=== PATIENT | male | born 1955 | race Caucasian/White ===

== ENCOUNTER 2020-03-14 23:04 | Inpatient (IN) | payer MEDICARE, OTHER ==
[2020-03-15] MEDS ORDERED: Albuterol/Ipratropium 4 GM Inhalation Spray INH PRN (00:16)
--- NOTE | 2020-03-15 00:17 | EDM.PDOC ---
ED HPI GENERAL MEDICAL PROBLEM - General Chief Complaint: General Stated Complaint: COVID SYMPTOMS Time Seen by Provider: 03/15/20 00:05 Source of Information: Reports: Patient, RN Notes Reviewed History Limitations: Reports: No Limitations - History of Present Illness INITIAL COMMENTS - FREE TEXT/NARRATIVE: 64-year-old gentleman presents emergency department a complaint of shortness of breath, he states been ill for about 5 days has had fevers body aches at home did have a Covid test about 3 days ago but the results are not available Right Shoulder Pain Score (Numeric/FACES): 4 - Related Data Allergies Allergy/AdvReac Type Severity Reaction Status Date / Time codeine Allergy Swelling Verified 01/07/14 20:28 Home Meds: Home Meds Insulin Glarg,Human.Rec.Analog [Lantus] 30 unit SQ QAM 01/07/14 [History] Insulin Lispro [Humalog] 5 units SQ QPM 01/07/14 [History] Omeprazole 20 mg PO DAILY 01/07/14 [History] SitaGLIPtin [Januvia] 100 mg PO DAILY 01/07/14 [History] Warfarin Sliding Scale [Coumadin Sliding Scale] 5 mg PO ASDIRECTED 01/07/14 [History] atorvaSTATin [Lipitor] 20 mg PO DAILY 01/07/14 [History] Past Medical History Respiratory History: Reports: COPD - Infectious Disease History Infectious Disease History: Reports: Chicken Pox, Measles, Mumps - Past Surgical History Musculoskeletal Surgical History: Reports: Other (See Below) Other Musculoskeletal Surgeries/Procedures:: back surgeries Social & Family History - Tobacco Use Tobacco Use Status *Q: Never Tobacco User - Caffeine Use Caffeine Use: Reports: Coffee - Recreational Drug Use Recreational Drug Use: No ED ROS GENERAL - Review of Systems Review Of Systems: See Below Constitutional: Reports: Fever, Chills, Weakness HEENT: Reports: No Symptoms Respiratory: Reports: Shortness of Breath, Cough Cardiovascular: Reports: Dyspnea on Exertion GI/Abdominal: Reports: No Symptoms ED EXAM, GENERAL - Physical Exam Exam: See Below Exam Limited By: No Limitations General Appearance: Alert, WD/WN, No Apparent Distress Respiratory/Chest: No Respiratory Distress, Lungs Clear, No Accessory Muscle Use, Chest Non-Tender, Decreased Breath Sounds Cardiovascular: Regular Rate, Rhythm, No Murmur Course - Vital Signs Last Recorded V/S: Last Vital Signs Temp 97 F 03/14/20 23:14 Pulse 90 03/15/20 00:54 Resp 22 H 03/15/20 00:54 BP 150/85 H 03/15/20 00:54 Pulse Ox 96 03/15/20 00:54 - Orders/Labs/Meds Orders: Active Orders 24 hr Category Date Time Status RT Post Treatment Assessment [RC] Click to Edit Care 03/15/20 00:16 Active Chest 1V Frontal [CR] Stat Exams 03/15/20 00:14 Taken Acetaminophen [TylenoL] Med 03/15/20 00:12 Active 650 mg PO Q4H PRN Albuterol/Ipratropium [Combivent Respimat] Med 03/15/20 00:16 Active 1 gm INH Q4H PRN dexAMETHasone [Decadron] Med 03/15/20 02:30 Ordered 6 mg IVPUSH DAILY Isolation [COMM] Routine Oth 03/15/20 00:14 Ordered Isolation [COMM] Stat Oth 03/15/20 00:12 Ordered Medication Orders Acetaminophen (Tylenol) 650 mg PO Q4H PRN PRN Reason: Fever Greater Than 101 Albuterol/Ipratropium (Combivent Respimat) 1 gm INH Q4H PRN PRN Reason: Dyspnea Last Admin: 03/15/20 00:39 Dose: 2 puff Documented by: ADELSO Dexamethasone (Decadron) 6 mg IVPUSH DAILY LIZABETH Stop: 03/23/20 09:01 Labs: Laboratory Tests 03/15/20 03/15/20 03/15/20 Range/Units 00:12 00:12 00:43 WBC 4.9 (4.5-11.0) K/uL RBC 5.41 (4.30-5.90) M/uL Hgb 15.8 H (12.0-15.0) g/dL Hct 47.9 (40.0-54.0) % MCV 89 (80-98) fL MCH 29 (27-31) pg MCHC 33 (32-36) % Plt Count 203 (150-400) K/uL Neut % (Auto) 52 (36-66) % Lymph % (Auto) 37 (24-44) % [place] % (Auto) 10 H (2-6) % Eos % (Auto) 1 L (2-4) % Baso % (Auto) 1 (0-1) % PT (9.5-12.0) sec INR (0.80-1.20) D-Dimer, Quantitative (0.0-500.0) ng/mL Puncture Site Rt radial ABG pH 7.461 H (7.350-7.450) ABG pCO2 27.8 L (35.0-42.0) mmHg ABG pO2 93.4 (75.0-100.0) mmHg ABG HCO3 19.6 L (22.0-26.0) mmol/L ABG Total CO2 16.5 L (23.0-27.0) mmol/L ABG O2 Saturation 97.4 (95.0-98.0) % ABG O2 Content 21.4 (15.0-23.0) %vol ABG Base Excess -2.3 mm/L ABG Hemoglobin 15.9 (13.5-18.0) g/dL ABG Oxyhemoglobin 95.5 % ABG Carboxyhemoglobin 1.1 (0.0-1.6) % ABG Methemoglobin 0.9 % Jarad Test Passed O2 Delivery Device Nasal cannula Oxygen Flow Rate 2.0 L Sodium (140-148) mmol/L Potassium (3.6-5.2) mmol/L Chloride (100-108) mmol/L Carbon Dioxide (21-32) mmol/L Anion Gap (5.0-14.0) mmol/L BUN (7-18) mg/dL Creatinine (0.8-1.3) mg/dL Est Cr Clr Drug Dosing mL/min Estimated GFR (MDRD) (>60) Glucose (74-106) mg/dL Lactic Acid (0.4-2.0) mmol/L Calcium (8.5-10.1) mg/dL Ferritin (8-388) ng/ml Total Bilirubin (0.2-1.0) mg/dL Direct Bilirubin (0.0-0.2) mg/dL Indirect Bilirubin AST (15-37) U/L ALT (12-78) U/L Alkaline Phosphatase (46-116) U/L Lactate Dehydrogenase (85-227) U/L C-Reactive Protein (0.0-0.3) mg/dL Total Protein (6.4-8.2) g/dL Albumin (3.4-5.0) g/dL Globulin (2.3-3.5) g/dL Albumin/Globulin Ratio (1.2-2.2) Procalcitonin ng/mL SARS-CoV-2 RNA (RUSSELL) Positive H (NEGATIVE) 03/15/20 03/15/20 03/15/20 Range/Units 00:47 00:47 00:47 WBC (4.5-11.0) K/uL RBC (4.30-5.90) M/uL Hgb (12.0-15.0) g/dL Hct (40.0-54.0) % MCV (80-98) fL MCH (27-31) pg MCHC (32-36) % Plt Count (150-400) K/uL Neut % (Auto) (36-66) % Lymph % (Auto) (24-44) % [place] % (Auto) (2-6) % Eos % (Auto) (2-4) % Baso % (Auto) (0-1) % PT (9.5-12.0) sec INR (0.80-1.20) D-Dimer, Quantitative 289.69 (0.0-500.0) ng/mL Puncture Site ABG pH (7.350-7.450) ABG pCO2 (35.0-42.0) mmHg ABG pO2 (75.0-100.0) mmHg ABG HCO3 (22.0-26.0) mmol/L ABG Total CO2 (23.0-27.0) mmol/L ABG O2 Saturation (95.0-98.0) % ABG O2 Content (15.0-23.0) %vol ABG Base Excess mm/L ABG Hemoglobin (13.5-18.0) g/dL ABG Oxyhemoglobin % ABG Carboxyhemoglobin (0.0-1.6) % ABG Methemoglobin % Jarad Test O2 Delivery Device Oxygen Flow Rate L Sodium 133 L (140-148) mmol/L Potassium 3.9 (3.6-5.2) mmol/L Chloride 97 L (100-108) mmol/L Carbon Dioxide 24 (21-32) mmol/L Anion Gap 15.9 H (5.0-14.0) mmol/L BUN 18 (7-18) mg/dL Creatinine 1.4 H (0.8-1.3) mg/dL Est Cr Clr Drug Dosing 61.16 mL/min Estimated GFR (MDRD) 51 L (>60) Glucose 193 H (74-106) mg/dL Lactic Acid (0.4-2.0) mmol/L Calcium 8.6 (8.5-10.1) mg/dL Ferritin 192 (8-388) ng/ml Total Bilirubin 0.5 (0.2-1.0) mg/dL Direct Bilirubin 0.19 (0.0-0.2) mg/dL Indirect Bilirubin 0.31 AST 64 H D (15-37) U/L ALT 48 (12-78) U/L Alkaline Phosphatase 59 (46-116) U/L Lactate Dehydrogenase 240 H (85-227) U/L C-Reactive Protein 1.66 H (0.0-0.3) mg/dL Total Protein 8.7 H (6.4-8.2) g/dL Albumin 3.3 L (3.4-5.0) g/dL Globulin 5.4 H (2.3-3.5) g/dL Albumin/Globulin Ratio 0.6 L (1.2-2.2) Procalcitonin ng/mL SARS-CoV-2 RNA (RUSSELL) (NEGATIVE) 03/15/20 03/15/20 03/15/20 Range/Units 00:47 00:47 00:47 WBC (4.5-11.0) K/uL RBC (4.30-5.90) M/uL Hgb (12.0-15.0) g/dL Hct (40.0-54.0) % MCV (80-98) fL MCH (27-31) pg MCHC (32-36) % Plt Count (150-400) K/uL Neut % (Auto) (36-66) % Lymph % (Auto) (24-44) % [place] % (Auto) (2-6) % Eos % (Auto) (2-4) % Baso % (Auto) (0-1) % PT 30.4 H (9.5-12.0) sec INR 2.85 H (0.80-1.20) D-Dimer, Quantitative (0.0-500.0) ng/mL Puncture Site ABG pH (7.350-7.450) ABG pCO2 (35.0-42.0) mmHg ABG pO2 (75.0-100.0) mmHg ABG HCO3 (22.0-26.0) mmol/L ABG Total CO2 (23.0-27.0) mmol/L ABG O2 Saturation (95.0-98.0) % ABG O2 Content (15.0-23.0) %vol ABG Base Excess mm/L ABG Hemoglobin (13.5-18.0) g/dL ABG Oxyhemoglobin % ABG Carboxyhemoglobin (0.0-1.6) % ABG Methemoglobin % Jarad Test O2 Delivery Device Oxygen Flow Rate L Sodium (140-148) mmol/L Potassium (3.6-5.2) mmol/L Chloride (100-108) mmol/L Carbon Dioxide (21-32) mmol/L Anion Gap (5.0-14.0) mmol/L BUN (7-18) mg/dL Creatinine (0.8-1.3) mg/dL Est Cr Clr Drug Dosing mL/min Estimated GFR (MDRD) (>60) Glucose (74-106) mg/dL Lactic Acid 2.3 H (0.4-2.0) mmol/L Calcium (8.5-10.1) mg/dL Ferritin (8-388) ng/ml Total Bilirubin (0.2-1.0) mg/dL Direct Bilirubin (0.0-0.2) mg/dL Indirect Bilirubin AST (15-37) U/L ALT (12-78) U/L Alkaline Phosphatase (46-116) U/L Lactate Dehydrogenase (85-227) U/L C-Reactive Protein (0.0-0.3) mg/dL Total Protein (6.4-8.2) g/dL Albumin (3.4-5.0) g/dL Globulin (2.3-3.5) g/dL Albumin/Globulin Ratio (1.2-2.2) Procalcitonin < 0.05 ng/mL SARS-CoV-2 RNA (RUSSELL) (NEGATIVE) Meds: Medications Generic Name Dose Route Start Last Admin Trade Name Freq PRN Reason Stop Dose Admin Acetaminophen 650 mg 03/15/20 00:12 Tylenol PO Q4H PRN Fever Greater Than 101 Albuterol/Ipratropium 1 gm 03/15/20 00:16 03/15/20 00:39 Combivent Respimat INH 2 puff Q4H PRN Administration Dyspnea Dexamethasone 6 mg 03/15/20 02:30 Decadron IVPUSH 03/23/20 09:01 DAILY LIZABETH Discontinued Medications Generic Name Dose Route Start Last Admin Trade Name Freq PRN Reason Stop Dose Admin Remdesivir 200 mg/ Sodium 250 mls @ 250 mls/hr 03/15/20 02:22 Chloride IV 03/15/20 02:23 ONETIME ONE Departure - Departure Time of Disposition: 02:33 Disposition: Admitted As Inpatient 65 Condition: Fair Clinical Impression: COVID-19 - Discharge Information Referrals: Handy Parisi MD [Primary Care Provider] - Forms: ED Department Discharge Sepsis Event Note (ED) - Evaluation Sepsis Screening Result: Possible Sepsis Risk - Focused Exam Vital Signs: Vital Signs Temp Pulse Resp BP Pulse Ox 03/15/20 00:54 90 22 H 150/85 H 96 03/14/20 23:14 97 F 103 H 20 114/78 89 L - My Orders Last 24 Hours: My Active Orders 03/15/20 00:12 Acetaminophen [TylenoL] 650 mg PO Q4H PRN Isolation [COMM] Stat 03/15/20 00:14 Chest 1V Frontal [CR] Stat Isolation [COMM] Routine 03/15/20 00:16 RT Post Treatment Assessment [RC] Click to Edit Albuterol/Ipratropium [Combivent Respimat] 1 gm INH Q4H PRN 03/15/20 02:30 dexAMETHasone [Decadron] 6 mg IVPUSH DAILY - Assessment/Plan Last 24 Hours: My Active Orders 03/15/20 00:12 Acetaminophen [TylenoL] 650 mg PO Q4H PRN Isolation [COMM] Stat 03/15/20 00:14 Chest 1V Frontal [CR] Stat Isolation [COMM] Routine 03/15/20 00:16 RT Post Treatment Assessment [RC] Click to Edit Albuterol/Ipratropium [Combivent Respimat] 1 gm INH Q4H PRN 03/15/20 02:30 dexAMETHasone [Decadron] 6 mg IVPUSH DAILY Plan: Assessment Acuity = acute Site and laterality = Covid syndrome Etiology = COVID-19 Manifestations = hypoxia Location of injury = Home Lab values = CBC unremarkable D-dimer normal to 89 ABG pH 7.46 PCO2 27.8 bicarb 19.6 sodium low at 133 consistent hyponatremia creatinine elevated 1.4 consistent with chronic renal failure stage G3 B lactic acid normal 2.3 LDH slightly elevated to 40 CRP slightly elevated 166 procalcitonin is less than 0.05 Covid is positive influenza a and B- Plan Call discussed case Dr. Swift at 230 he kindly agreed to come and evaluate patient in the hospital for admission remdesivir and dexamethasone have been initiated in the emergency department This note was dictated using [employer] voice recognition software please call with any questions on syntax or grammar.
[2020-03-15] MEDS ORDERED: REMDESIVIR 200 MG in Sodium Chloride 0.9% 250 ML IV ONE (02:22)
[2020-03-15] MEDS ORDERED: Dexamethasone 4 MG/ML SDV IVPUSH SCH ×2 (02:30→22:00)
[2020-03-15] MEDS: Acetaminophen 325 MG Tab PO PRN ×2 (03:57→12:32)
[2020-03-15] MEDS: Pantoprazole 40 MG Tab.CR PO SCH (07:59)
[2020-03-15] MEDS: atorvaSTATin 20 MG Tab PO SCH (08:00)
[2020-03-15] MEDS: Insulin Glargine,Human Rec. Analog 100 Units/ML 3 ML Pen SUBCUT SCH (08:04)
[2020-03-15] MEDS ORDERED: Insulin Glargine,Human Rec. Analog 100 Units/ML 3 ML Pen SUBCUT SCH (09:00)
--- NOTE | 2020-03-15 09:41 | HP ---
IDENTIFYING DATA: Niko Mason is a 64-year-old male from [facility]. CHIEF COMPLAINT: Short of breath. HISTORY OF PRESENT ILLNESS: Adult disabled male, has a noted history of idiopathic pulmonary fibrosis with chronic [id number] limiting respiratory symptoms. He is not currently on routine maintenance therapy. Unsure whether he has received his annual flu vaccine. He is a former smoker having discontinued 20 years ago. Denies a history of emphysema or asthmatic lung disease. He notes 5 days ago he ran errands in town. Later that day, he reports developing cough, congestion, and shortness of breath, as well as abdominal discomfort, anorexia, and diarrhea. He has had no loss of taste or smell. No purulent sputum production. Does have development of right-sided chest pain of a pleuritic component. No nasal congestion or coryza is reported. PAST MEDICAL HISTORY: Noted history of type 2 diabetes with insulin therapies. Additionally, he has a reported history of DVT with pulmonary emboli with long-standing Coumadin anticoagulant therapy. He denies a history of hypertension, hyperlipidemia, or ischemic heart disease. No history of HI or congestive heart failure. Does have a history of chronic lumbar back disease with 7 surgical procedures for back pain. Chronic back pain and stiffness remains limiting. He is on no regular prescription therapies for analgesia. Estimates his ambulatory distance at 150 feet limited by back pain and stiffness as well as chronic limiting respiratory symptoms. ALLERGIES: REPORTED TO CODEINE. CURRENT MEDICATIONS: Lantus 30 units subcu q.a.m., Humalog 5 units subcu q.p.m., omeprazole 20 mg daily, warfarin on sliding scale for DVT prophylaxis, atorvastatin 20 mg daily, and omeprazole 20 mg daily. HABITS: Nonsmoker of 20 years duration. Caffeine intake averages 5 drinks daily with a combination of coffee and carbonated beverages. No regular use of alcohol. SOCIAL HISTORY: Currently residing with his and elderly [id number] in their [facility] home. He is disabled by chronic respiratory and back disease, does engage in daily activities, performs ADLs independently. He typically drives. FAMILY HISTORY: Notes his elderly [id number] had a recent "flu" with cough, congestion, and subsequent resolution of symptoms. has been well. REVIEW OF SYSTEMS: NEUROLOGIC: No history of strokes, seizures, glaucoma, retinopathy, or hearing loss. Denies paresthesias in the feet. CARDIAC: Hyperlipidemia with atorvastatin therapy. No history of HI, chest pain, palpitations, syncope, congestive heart failure or rheumatic fever, chronic diabetic disease is noted. RESPIRATORY: Idiopathic pulmonary fibrosis without current active treatment, has not required home oxygen therapies. GI: Denies hepatitis, jaundice, chronic constipation, recently has had diarrhea as well as anorexia. : Nocturia 1 to 2 times nightly. No history of known chronic renal disease. MUSCULOSKELETAL: Chronic back pain with multiple surgeries. PHYSICAL EXAMINATION: GENERAL: Appearance is that of an adult male, currently in no acute distress. Does note recurrent right-sided chest wall pain, relieved with repositioning in bed. VITAL SIGNS: On admission, temperature 97 degrees Fahrenheit, pulse 90, respiratory rate 22, blood pressure 150/85, O2 sats 96% with supplemental oxygen at 2 L/minute. HEENT: Hearing is grossly intact. Pupils reactive. Sclerae are anicteric. Oral mucosa is moist. NECK: Brisk carotid pulses. No bruits or JVD. LUNGS: Slight decreased breath sounds in the right hemithorax. No pleuritic rubs. No wheezes or rhonchi noted. Few scattered rales in the [id number] lungs bilaterally. No retractions. HEART: Heart sounds are regular. Distant. No murmurs or gallops noted. ABDOMEN: Nondistended, nontender. No organomegaly. Active sounds. No CVA pain. Good femoral pulses. and RECTAL: Omitted. EXTREMITIES: Warm and pink. Skin is intact. No pitting edema. Good dorsal, pedal, and posterior tibial pulses. IMAGING: Chest x-ray, interstitial changes bilaterally. No acute infiltrates. Suggestion of effusion at the right costophrenic margin. LABORATORY DATA: WBC 4.9, hemoglobin 15.8, platelet count 203,000. INR 2.85 on Coumadin anticoagulant therapy. ABGs on admission; pH 7.46, pCO2 of 27.8, pO2 of 93, with supplemental oxygen at 2 L/minute. Bicarb 27.8, sodium 133, potassium 3.9, BUN 18, creatinine 1.4 with a GFR of 51, glucose 193 on admission. Lactic acid 2.3, ferritin 192, alkaline phosphatase 59, ALT 48, AST 64. C-reactive protein mildly elevated at 1.66. Procalcitonin less than 0.05. COVID-19 by RNA PCR positive. IMPRESSION: 1. COVID-19 infection. 2. Reported history of idiopathic pulmonary fibrosis. 3. Type 2 diabetes. 4. Hyperlipidemia. 5. Chronic lumbar spine disease with multiple previous surgeries. 6. Remote history of tobacco use, now abstaining. PLAN: With respiratory impairment noted and risk factors for complications including chronic respiratory disease, and diabetes, patient will be admitted to the COVID unit for ongoing supportive care. First dose of remdesivir and dexamethasone have been provided in the ER setting. We will continue to provide oxygen by supplemental therapy with nasal cannula administration, monitor vital signs, allow diabetic diet, insulin therapies, and glucose monitoring. Followup labs including BMP, C-reactive protein, b.i.d. glucose checks and daily protime INR have been requested. We will continue with warfarin anticoagulant therapy as well. Full code status will be maintained per patient's request. He remains in isolation in the COVID unit. Sundar Swift MD /[id number]
[2020-03-15] MEDS: Insulin Lispro 100 Unit/ML 3 ML KwikPen SUBCUT SCH ×3 (12:21→21:43)
[2020-03-15] MEDS ORDERED: Warfarin 5 MG Tab PO SCH (13:00)
--- NOTE | 2020-03-15 16:19 | PCM.PN ---
- General Info Date of Service: 03/15/20 Subjective Update: Mr. Odom is a 64-year-old gentleman who was admitted through the emergency department earlier today with shortness of breath, weakness, cough, and hypoxia, secondary to COVID-19 and bilateral pneumonia. He was diagnosed with COVID-19 a few days ago and has developed progressive symptoms since then. Presented to the emergency department last night because of his increased shortness of breath. Chest x-ray shows bilateral pulmonary infiltrates consistent with Covid infection and testing for COVID-19 was found to be positive. White blood cell count is within normal range. Oxygen saturation is corrected with a few liters of oxygen via nasal cannula. He does have a history of underlying idiopathic pulmonary fibrosis but does not currently require oxygen at baseline. Functional Status: Reports: Tolerating Diet, Urinating - Review of Systems General: Reports: Weakness, Fatigue. Denies: Fever, Chills Pulmonary: Reports: Shortness of Breath, Cough. Denies: Pleuritic Chest Pain, Sputum, Hemoptysis, Wheezing Cardiovascular: Reports: Dyspnea on Exertion. Denies: Chest Pain, Palpitations, Orthopnea, PND, Edema, Lightheadedness Gastrointestinal: Reports: No Symptoms Genitourinary: Reports: No Symptoms - Patient Data Vitals - Most Recent: Last Vital Signs Temp 206.2 F H 03/15/20 14:57 Pulse 93 03/15/20 14:57 Resp 16 03/15/20 14:57 BP 123/88 03/15/20 14:57 Pulse Ox 93 L 03/15/20 14:57 Weight - Most Recent: 230 lb 8 oz I&O - Last 24 Hours: Intake & Output 03/15/20 03/15/20 03/15/20 06:59 14:59 22:59 Intake Total 120 Balance 120 Lab Results Last 24 Hours: Laboratory Results - last 24 hr 03/15/20 03/15/20 03/15/20 Range/Units 00:12 00:12 00:20 WBC 4.9 (4.5-11.0) K/uL RBC 5.41 (4.30-5.90) M/uL Hgb 15.8 H (12.0-15.0) g/dL Hct 47.9 (40.0-54.0) % MCV 89 (80-98) fL MCH 29 (27-31) pg MCHC 33 (32-36) % Plt Count 203 (150-400) K/uL Neut % (Auto) 52 (36-66) % Lymph % (Auto) 37 (24-44) % [place] % (Auto) 10 H (2-6) % Eos % (Auto) 1 L (2-4) % Baso % (Auto) 1 (0-1) % PT (9.5-12.0) sec INR (0.80-1.20) D-Dimer, Quantitative (0.0-500.0) ng/mL Puncture Site Rt radial ABG pH 7.461 H (7.350-7.450) ABG pCO2 27.8 L (35.0-42.0) mmHg ABG pO2 93.4 (75.0-100.0) mmHg ABG HCO3 19.6 L (22.0-26.0) mmol/L ABG Total CO2 16.5 L (23.0-27.0) mmol/L ABG O2 Saturation 97.4 (95.0-98.0) % ABG O2 Content 21.4 (15.0-23.0) %vol ABG Base Excess -2.3 mm/L ABG Hemoglobin 15.9 (13.5-18.0) g/dL ABG Oxyhemoglobin 95.5 % ABG Carboxyhemoglobin 1.1 (0.0-1.6) % ABG Methemoglobin 0.9 % Jarad Test Passed O2 Delivery Device Nasal cannula Oxygen Flow Rate 2.0 L Sodium (140-148) mmol/L Potassium (3.6-5.2) mmol/L Chloride (100-108) mmol/L Carbon Dioxide (21-32) mmol/L Anion Gap (5.0-14.0) mmol/L BUN (7-18) mg/dL Creatinine (0.8-1.3) mg/dL Est Cr Clr Drug Dosing mL/min Estimated GFR (MDRD) (>60) Glucose (74-106) mg/dL POC Glucose (74-106) MG/DL Lactic Acid (0.4-2.0) mmol/L Calcium (8.5-10.1) mg/dL Ferritin (8-388) ng/ml Total Bilirubin (0.2-1.0) mg/dL Direct Bilirubin (0.0-0.2) mg/dL Indirect Bilirubin AST (15-37) U/L ALT (12-78) U/L Alkaline Phosphatase (46-116) U/L Lactate Dehydrogenase (85-227) U/L C-Reactive Protein (0.0-0.3) mg/dL Total Protein (6.4-8.2) g/dL Albumin (3.4-5.0) g/dL Globulin (2.3-3.5) g/dL Albumin/Globulin Ratio (1.2-2.2) Procalcitonin ng/mL SARS-CoV-2 RNA (RUSSELL) (NEGATIVE) Blood Type AB POSITIVE 03/15/20 03/15/20 03/15/20 Range/Units 00:43 00:47 00:47 WBC (4.5-11.0) K/uL RBC (4.30-5.90) M/uL Hgb (12.0-15.0) g/dL Hct (40.0-54.0) % MCV (80-98) fL MCH (27-31) pg MCHC (32-36) % Plt Count (150-400) K/uL Neut % (Auto) (36-66) % Lymph % (Auto) (24-44) % [place] % (Auto) (2-6) % Eos % (Auto) (2-4) % Baso % (Auto) (0-1) % PT (9.5-12.0) sec INR (0.80-1.20) D-Dimer, Quantitative 289.69 (0.0-500.0) ng/mL Puncture Site ABG pH (7.350-7.450) ABG pCO2 (35.0-42.0) mmHg ABG pO2 (75.0-100.0) mmHg ABG HCO3 (22.0-26.0) mmol/L ABG Total CO2 (23.0-27.0) mmol/L ABG O2 Saturation (95.0-98.0) % ABG O2 Content (15.0-23.0) %vol ABG Base Excess mm/L ABG Hemoglobin (13.5-18.0) g/dL ABG Oxyhemoglobin % ABG Carboxyhemoglobin (0.0-1.6) % ABG Methemoglobin % Jarad Test O2 Delivery Device Oxygen Flow Rate L Sodium (140-148) mmol/L Potassium (3.6-5.2) mmol/L Chloride (100-108) mmol/L Carbon Dioxide (21-32) mmol/L Anion Gap (5.0-14.0) mmol/L BUN (7-18) mg/dL Creatinine (0.8-1.3) mg/dL Est Cr Clr Drug Dosing mL/min Estimated GFR (MDRD) (>60) Glucose (74-106) mg/dL POC Glucose (74-106) MG/DL Lactic Acid (0.4-2.0) mmol/L Calcium (8.5-10.1) mg/dL Ferritin 192 (8-388) ng/ml Total Bilirubin (0.2-1.0) mg/dL Direct Bilirubin (0.0-0.2) mg/dL Indirect Bilirubin AST (15-37) U/L ALT (12-78) U/L Alkaline Phosphatase (46-116) U/L Lactate Dehydrogenase (85-227) U/L C-Reactive Protein (0.0-0.3) mg/dL Total Protein (6.4-8.2) g/dL Albumin (3.4-5.0) g/dL Globulin (2.3-3.5) g/dL Albumin/Globulin Ratio (1.2-2.2) Procalcitonin ng/mL SARS-CoV-2 RNA (RUSSELL) Positive H (NEGATIVE) Blood Type 03/15/20 03/15/20 03/15/20 Range/Units 00:47 00:47 00:47 WBC (4.5-11.0) K/uL RBC (4.30-5.90) M/uL Hgb (12.0-15.0) g/dL Hct (40.0-54.0) % MCV (80-98) fL MCH (27-31) pg MCHC (32-36) % Plt Count (150-400) K/uL Neut % (Auto) (36-66) % Lymph % (Auto) (24-44) % [place] % (Auto) (2-6) % Eos % (Auto) (2-4) % Baso % (Auto) (0-1) % PT (9.5-12.0) sec INR (0.80-1.20) D-Dimer, Quantitative (0.0-500.0) ng/mL Puncture Site ABG pH (7.350-7.450) ABG pCO2 (35.0-42.0) mmHg ABG pO2 (75.0-100.0) mmHg ABG HCO3 (22.0-26.0) mmol/L ABG Total CO2 (23.0-27.0) mmol/L ABG O2 Saturation (95.0-98.0) % ABG O2 Content (15.0-23.0) %vol ABG Base Excess mm/L ABG Hemoglobin (13.5-18.0) g/dL ABG Oxyhemoglobin % ABG Carboxyhemoglobin (0.0-1.6) % ABG Methemoglobin % Jarad Test O2 Delivery Device Oxygen Flow Rate L Sodium 133 L (140-148) mmol/L Potassium 3.9 (3.6-5.2) mmol/L Chloride 97 L (100-108) mmol/L Carbon Dioxide 24 (21-32) mmol/L Anion Gap 15.9 H (5.0-14.0) mmol/L BUN 18 (7-18) mg/dL Creatinine 1.4 H (0.8-1.3) mg/dL Est Cr Clr Drug Dosing 61.16 mL/min Estimated GFR (MDRD) 51 L (>60) Glucose 193 H (74-106) mg/dL POC Glucose (74-106) MG/DL Lactic Acid 2.3 H (0.4-2.0) mmol/L Calcium 8.6 (8.5-10.1) mg/dL Ferritin (8-388) ng/ml Total Bilirubin 0.5 (0.2-1.0) mg/dL Direct Bilirubin 0.19 (0.0-0.2) mg/dL Indirect Bilirubin 0.31 AST 64 H D (15-37) U/L ALT 48 (12-78) U/L Alkaline Phosphatase 59 (46-116) U/L Lactate Dehydrogenase 240 H (85-227) U/L C-Reactive Protein 1.66 H (0.0-0.3) mg/dL Total Protein 8.7 H (6.4-8.2) g/dL Albumin 3.3 L (3.4-5.0) g/dL Globulin 5.4 H (2.3-3.5) g/dL Albumin/Globulin Ratio 0.6 L (1.2-2.2) Procalcitonin < 0.05 ng/mL SARS-CoV-2 RNA (RUSSELL) (NEGATIVE) Blood Type 03/15/20 03/15/20 03/15/20 Range/Units 00:47 05:27 07:47 WBC (4.5-11.0) K/uL RBC (4.30-5.90) M/uL Hgb (12.0-15.0) g/dL Hct (40.0-54.0) % MCV (80-98) fL MCH (27-31) pg MCHC (32-36) % Plt Count (150-400) K/uL Neut % (Auto) (36-66) % Lymph % (Auto) (24-44) % [place] % (Auto) (2-6) % Eos % (Auto) (2-4) % Baso % (Auto) (0-1) % PT 30.4 H 31.6 H (9.5-12.0) sec INR 2.85 H 2.96 H (0.80-1.20) D-Dimer, Quantitative (0.0-500.0) ng/mL Puncture Site ABG pH (7.350-7.450) ABG pCO2 (35.0-42.0) mmHg ABG pO2 (75.0-100.0) mmHg ABG HCO3 (22.0-26.0) mmol/L ABG Total CO2 (23.0-27.0) mmol/L ABG O2 Saturation (95.0-98.0) % ABG O2 Content (15.0-23.0) %vol ABG Base Excess mm/L ABG Hemoglobin (13.5-18.0) g/dL ABG Oxyhemoglobin % ABG Carboxyhemoglobin (0.0-1.6) % ABG Methemoglobin % Jarad Test O2 Delivery Device Oxygen Flow Rate L Sodium (140-148) mmol/L Potassium (3.6-5.2) mmol/L Chloride (100-108) mmol/L Carbon Dioxide (21-32) mmol/L Anion Gap (5.0-14.0) mmol/L BUN (7-18) mg/dL Creatinine (0.8-1.3) mg/dL Est Cr Clr Drug Dosing mL/min Estimated GFR (MDRD) (>60) Glucose (74-106) mg/dL POC Glucose 199 H (74-106) MG/DL Lactic Acid (0.4-2.0) mmol/L Calcium (8.5-10.1) mg/dL Ferritin (8-388) ng/ml Total Bilirubin (0.2-1.0) mg/dL Direct Bilirubin (0.0-0.2) mg/dL Indirect Bilirubin AST (15-37) U/L ALT (12-78) U/L Alkaline Phosphatase (46-116) U/L Lactate Dehydrogenase (85-227) U/L C-Reactive Protein (0.0-0.3) mg/dL Total Protein (6.4-8.2) g/dL Albumin (3.4-5.0) g/dL Globulin (2.3-3.5) g/dL Albumin/Globulin Ratio (1.2-2.2) Procalcitonin ng/mL SARS-CoV-2 RNA (RUSSELL) (NEGATIVE) Blood Type 03/15/20 Range/Units 12:01 WBC (4.5-11.0) K/uL RBC (4.30-5.90) M/uL Hgb (12.0-15.0) g/dL Hct (40.0-54.0) % MCV (80-98) fL MCH (27-31) pg MCHC (32-36) % Plt Count (150-400) K/uL Neut % (Auto) (36-66) % Lymph % (Auto) (24-44) % [place] % (Auto) (2-6) % Eos % (Auto) (2-4) % Baso % (Auto) (0-1) % PT (9.5-12.0) sec INR (0.80-1.20) D-Dimer, Quantitative (0.0-500.0) ng/mL Puncture Site ABG pH (7.350-7.450) ABG pCO2 (35.0-42.0) mmHg ABG pO2 (75.0-100.0) mmHg ABG HCO3 (22.0-26.0) mmol/L ABG Total CO2 (23.0-27.0) mmol/L ABG O2 Saturation (95.0-98.0) % ABG O2 Content (15.0-23.0) %vol ABG Base Excess mm/L ABG Hemoglobin (13.5-18.0) g/dL ABG Oxyhemoglobin % ABG Carboxyhemoglobin (0.0-1.6) % ABG Methemoglobin % Jarad Test O2 Delivery Device Oxygen Flow Rate L Sodium (140-148) mmol/L Potassium (3.6-5.2) mmol/L Chloride (100-108) mmol/L Carbon Dioxide (21-32) mmol/L Anion Gap (5.0-14.0) mmol/L BUN (7-18) mg/dL Creatinine (0.8-1.3) mg/dL Est Cr Clr Drug Dosing mL/min Estimated GFR (MDRD) (>60) Glucose (74-106) mg/dL POC Glucose 238 H (74-106) MG/DL Lactic Acid (0.4-2.0) mmol/L Calcium (8.5-10.1) mg/dL Ferritin (8-388) ng/ml Total Bilirubin (0.2-1.0) mg/dL Direct Bilirubin (0.0-0.2) mg/dL Indirect Bilirubin AST (15-37) U/L ALT (12-78) U/L Alkaline Phosphatase (46-116) U/L Lactate Dehydrogenase (85-227) U/L C-Reactive Protein (0.0-0.3) mg/dL Total Protein (6.4-8.2) g/dL Albumin (3.4-5.0) g/dL Globulin (2.3-3.5) g/dL Albumin/Globulin Ratio (1.2-2.2) Procalcitonin ng/mL SARS-CoV-2 RNA (RUSSELL) (NEGATIVE) Blood Type Sebastian Results Last 24 Hours: Microbiology 03/15/20 00:38 Influenza Type A Antigen Screen - Final Nasal Aspirate, Unspecified NEGATIVE INFLUENZA A VIRUS AG REFERENCE RANGE: NEGATIVE Influenza Type B Antigen Screen - Final NEGATIVE INFLUENZA B VIRUS AG REFERENCE RANGE: NEGATIVE Med Orders - Current: Current Medications Acetaminophen (Tylenol) 650 mg PO Q4H PRN PRN Reason: Fever Greater Than 101 Last Admin: 03/15/20 12:32 Dose: 650 mg Documented by: Albuterol/Ipratropium (Combivent Respimat) 1 gm INH Q4H PRN PRN Reason: Dyspnea Last Admin: 03/15/20 00:39 Dose: 2 puff Documented by: Atorvastatin Calcium (Lipitor) 20 mg PO DAILY [facility] Last Admin: 03/15/20 08:00 Dose: 20 mg Documented by: Dexamethasone (Decadron) 6 mg IVPUSH Q24H [facility] Stop: 03/23/20 22:01 Remdesivir 100 mg/ Sodium (Chloride) 100 mls @ 100 mls/hr IV Q24H [facility] Stop: 03/19/20 02:59 Insulin Glargine (Lantus Solostar) 30 units SUBCUT QAM [facility] Last Admin: 03/15/20 08:04 Dose: 30 units Documented by: Insulin Human Lispro (Humalog) 0 unit SUBCUT QIDACANDBED [facility]; Protocol Last Admin: 03/15/20 12:21 Dose: 2 units Documented by: Pantoprazole Sodium (Protonix) 40 mg PO ACBREAKFAST [facility] Last Admin: 03/15/20 07:59 Dose: 40 mg Documented by: Warfarin Sodium (Coumadin) 5 mg PO DAILY@1300 [facility] Last Admin: 03/15/20 15:00 Dose: 5 mg Documented by: Discontinued Medications Dexamethasone (Decadron) 6 mg IVPUSH DAILY [facility] Stop: 03/23/20 09:01 Last Admin: 03/15/20 02:45 Dose: 6 mg Documented by: Remdesivir 200 mg/ Sodium (Chloride) 250 mls @ 250 mls/hr IV ONETIME ONE Stop: 03/15/20 02:23 Last Admin: 03/15/20 03:12 Dose: 250 mls/hr Documented by: - Exam Quality Assessment: Supplemental Oxygen, DVT Prophylaxis General: Alert, Oriented, Cooperative, Mild Distress Lungs: Clear to Auscultation, Normal Respiratory Effort, Rales. No: Crackles, Rhonchi, Wheezing Cardiovascular: Regular Rate, Regular Rhythm, No Murmurs GI/Abdominal Exam: Soft, Non-Tender, No Organomegaly, No Distention Extremities: Non-Tender, No Pedal Edema Sepsis Event Note - Evaluation Sepsis Screening Result: No Definite Risk - Focused Exam Vital Signs: Vital Signs Temp Temp Pulse Resp BP Pulse Ox Pulse Ox 03/15/20 14:57 206.2 F H 93 16 123/88 93 L 03/15/20 14:48 96.8 F L 91 16 131/86 95 03/15/20 14:33 97 F 93 16 123/88 95 03/15/20 14:18 96.8 F L 88 16 127/85 93 L 03/15/20 14:03 96.8 F L 90 16 121/86 96 03/15/20 12:11 95 03/15/20 10:56 98.4 F 76 16 115/78 95 03/15/20 07:51 96.4 F L 78 16 106/66 95 03/15/20 07:26 96 03/15/20 04:21 97 03/15/20 04:14 98 - Problem List Review Problem List Initiated/Reviewed/Updated: Yes - My Orders Last 24 Hours: My Active Orders 03/15/20 08:38 Transfuse Fresh Frozen Plasma [COMM] Q1HWA 03/15/20 11:00 Insulin Lispro [HumaLOG] See Protocol SUBCUT QIDACANDBED 03/16/20 05:00 CBC WITH AUTO DIFF [HEME] Timed COMPREHENSIVE METABOLIC PN,CMP [CHEM] Timed 03/16/20 05:11 D Dimer [D-DIMER QUANTITATIVE] [COAG] AM FERRITIN [CHEM] AM 03/16/20 08:38 FRESH FROZEN PLASMA [BBK] DAILY Transfuse Fresh Frozen Plasma [COMM] Q1HWA 03/17/20 08:38 FRESH FROZEN PLASMA [BBK] DAILY Transfuse Fresh Frozen Plasma [COMM] Q1HWA - Plan Plan:: ASSESSMENT AND PLAN COVID-19 INFECTION-progressive symptoms over the past few days since diagnosis, with developing hypoxia. -Supportive care, prone ventilation if possible -Limit IV fluids, furosemide as needed -Remdesivir 200 mg IV given in the emergency department earlier this morning, 100 mg IV daily for 4 days starting tomorrow -IV dexamethasone 6 mg daily for 5 to 10 days, today is day 1 -Convalescent plasma, 1 unit daily x3 days, today is day 1 of 3 HYPOXIC RESPIRATORY COMPROMISE-secondary to COVID-19 and bilateral pneumonia -Continuous pulse oximetry -Supplemental oxygen as needed PULMONARY FIBROSIS-does not require supplemental oxygen at baseline TYPE 2 DIABETES MELLITUS -Continue outpatient management -4 times daily glucometers -Low-dose sliding scale Humalog HISTORY OF DEEP VEIN THROMBOSIS AND PULMONARY EMBOLISM-on long-term oral anticoagulation with warfarin, INR this morning within therapeutic range -Continue warfarin 5 mg daily -Daily INR MAINTENANCE ISSUES -DVT prophylaxis; therapy with warfarin should provide adequate DVT prophylaxis -GI prophylaxis; not indicated -Barrientos catheter; not indicated -Nutrition; regular diet -Nicotine dependence; not required CODE STATUS-FULL CODE ADMISSION STATUS-patient will be admitted to inpatient status, expect at least a 2 night hospital stay for evaluation and management of problems as outlined above. At the time of this admission I do not reasonably expected evaluation and management of this problem will require more than a 96 hour hospital stay. DISPOSITION-anticipate discharge to home after the hospital stay. PRIMARY CARE PROVIDER-Dr. Parisi
[2020-03-15] MEDS ORDERED: REMDESIVIR 100 MG in Sodium Chloride 0.9% 100 ML IV SCH (23:30)
[2020-03-16] MEDS: REMDESIVIR 100 MG in Sodium Chloride 0.9% 100 ML IV SCH (01:45)
[2020-03-16] MEDS: Acetaminophen 325 MG Tab PO PRN ×2 (01:45→18:15)
[2020-03-16] MEDS ORDERED: REMDESIVIR 100 MG in Sodium Chloride 0.9% 100 ML IV SCH (06:00)
[2020-03-16] MEDS: Insulin Lispro 100 Unit/ML 3 ML KwikPen SUBCUT SCH ×4 (08:02→21:13)
[2020-03-16] MEDS: Insulin Glargine,Human Rec. Analog 100 Units/ML 3 ML Pen SUBCUT SCH (08:03)
[2020-03-16] MEDS: Pantoprazole 40 MG Tab.CR PO SCH (08:19)
[2020-03-16] MEDS: atorvaSTATin 20 MG Tab PO SCH (08:19)
--- NOTE | 2020-03-16 09:49 | CR ---
CHEST: Portable 03/15/2020 at 00:45 CLINICAL HISTORY:Respiratory failure COMPARISON:None FINDINGS: There are diffuse bilateral predominantly interstitial infiltrates. The this is superimposed over some chronic lung changes. The heart and pulmonary vascular normal. Impression: Changes of COPD. Diffuse interstitial prominence may represent a pneumonitis. If clinical symptomatology persists or worsens a repeat exam is recommended.
--- NOTE | 2020-03-16 13:32 | PCM.PN ---
- General Info Date of Service: 03/16/20 Subjective Update: No acute events overnight. Patient feels less short of breath today. Cough is minimal. No significant nausea or headaches. He was on oxygen overnight but at the time of my evaluation this morning he was off supplemental oxygen. He is able to walk short distances but does get winded fairly easily. Appetite seems a little better. Sleeping okay. No significant fevers. Tolerating medication so far. INR was elevated at nearly 5 today. Functional Status: Reports: Pain Controlled, Tolerating Diet - Review of Systems General: Reports: Weakness Pulmonary: Reports: Shortness of Breath - Patient Data Vitals - Most Recent: Last Vital Signs Temp 36.4 C 03/16/20 11:00 Pulse 68 03/16/20 11:00 Resp 16 03/16/20 11:00 BP 142/76 H 03/16/20 11:00 Pulse Ox 94 L 03/16/20 13:03 Weight - Most Recent: 104.553 kg I&O - Last 24 Hours: Intake & Output 03/15/20 03/16/20 03/16/20 22:59 06:59 14:59 Intake Total 492 692 Output Total 500 Balance 492 192 Lab Results Last 24 Hours: Laboratory Results - last 24 hr 03/15/20 03/15/20 03/15/20 Range/Units 00:20 17:07 21:46 WBC (4.5-11.0) K/uL RBC (4.30-5.90) M/uL Hgb (12.0-15.0) g/dL Hct (40.0-54.0) % MCV (80-98) fL MCH (27-31) pg MCHC (32-36) % Plt Count (150-400) K/uL Neut % (Auto) (36-66) % Lymph % (Auto) (24-44) % Carson % (Auto) (2-6) % Eos % (Auto) (2-4) % Baso % (Auto) (0-1) % PT (9.5-12.0) sec INR (0.80-1.20) D-Dimer, Quantitative (0.0-500.0) ng/mL Sodium (140-148) mmol/L Potassium (3.6-5.2) mmol/L Chloride (100-108) mmol/L Carbon Dioxide (21-32) mmol/L Anion Gap (5.0-14.0) mmol/L BUN (7-18) mg/dL Creatinine (0.8-1.3) mg/dL Est Cr Clr Drug Dosing mL/min Estimated GFR (MDRD) (>60) Glucose (74-106) mg/dL POC Glucose 191 H 224 H (74-106) MG/DL Calcium (8.5-10.1) mg/dL Ferritin (8-388) ng/ml Total Bilirubin (0.2-1.0) mg/dL AST (15-37) U/L ALT (12-78) U/L Alkaline Phosphatase (46-116) U/L C-Reactive Protein (0.0-0.3) mg/dL Total Protein (6.4-8.2) g/dL Albumin (3.4-5.0) g/dL Globulin (2.3-3.5) g/dL Albumin/Globulin Ratio (1.2-2.2) Blood Type AB POSITIVE 03/16/20 03/16/20 03/16/20 Range/Units 04:25 04:25 04:25 WBC 3.4 L (4.5-11.0) K/uL RBC 4.75 (4.30-5.90) M/uL Hgb 14.0 (12.0-15.0) g/dL Hct 42.3 (40.0-54.0) % MCV 89 (80-98) fL MCH 30 (27-31) pg MCHC 33 (32-36) % Plt Count 192 (150-400) K/uL Neut % (Auto) 66 (36-66) % Lymph % (Auto) 26 (24-44) % Carson % (Auto) 8 H (2-6) % Eos % (Auto) 0 L (2-4) % Baso % (Auto) 0 (0-1) % PT 51.8 H (9.5-12.0) sec INR 4.90 H* (0.80-1.20) D-Dimer, Quantitative (0.0-500.0) ng/mL Sodium (140-148) mmol/L Potassium (3.6-5.2) mmol/L Chloride (100-108) mmol/L Carbon Dioxide (21-32) mmol/L Anion Gap (5.0-14.0) mmol/L BUN (7-18) mg/dL Creatinine (0.8-1.3) mg/dL Est Cr Clr Drug Dosing mL/min Estimated GFR (MDRD) (>60) Glucose (74-106) mg/dL POC Glucose (74-106) MG/DL Calcium (8.5-10.1) mg/dL Ferritin (8-388) ng/ml Total Bilirubin (0.2-1.0) mg/dL AST (15-37) U/L ALT (12-78) U/L Alkaline Phosphatase (46-116) U/L C-Reactive Protein 1.24 H (0.0-0.3) mg/dL Total Protein (6.4-8.2) g/dL Albumin (3.4-5.0) g/dL Globulin (2.3-3.5) g/dL Albumin/Globulin Ratio (1.2-2.2) Blood Type 03/16/20 03/16/20 03/16/20 Range/Units 04:25 04:25 04:25 WBC (4.5-11.0) K/uL RBC (4.30-5.90) M/uL Hgb (12.0-15.0) g/dL Hct (40.0-54.0) % MCV (80-98) fL MCH (27-31) pg MCHC (32-36) % Plt Count (150-400) K/uL Neut % (Auto) (36-66) % Lymph % (Auto) (24-44) % Carson % (Auto) (2-6) % Eos % (Auto) (2-4) % Baso % (Auto) (0-1) % PT (9.5-12.0) sec INR (0.80-1.20) D-Dimer, Quantitative 297.61 (0.0-500.0) ng/mL Sodium 133 L (140-148) mmol/L Potassium 4.3 (3.6-5.2) mmol/L Chloride 100 (100-108) mmol/L Carbon Dioxide 23 (21-32) mmol/L Anion Gap 14.3 H (5.0-14.0) mmol/L BUN 21 H (7-18) mg/dL Creatinine 1.2 (0.8-1.3) mg/dL Est Cr Clr Drug Dosing 71.35 mL/min Estimated GFR (MDRD) > 60 (>60) Glucose 299 H (74-106) mg/dL POC Glucose (74-106) MG/DL Calcium 8.2 L (8.5-10.1) mg/dL Ferritin 323 (8-388) ng/ml Total Bilirubin 0.3 (0.2-1.0) mg/dL AST 37 (15-37) U/L ALT 37 (12-78) U/L Alkaline Phosphatase 51 (46-116) U/L C-Reactive Protein (0.0-0.3) mg/dL Total Protein 7.7 (6.4-8.2) g/dL Albumin 2.9 L (3.4-5.0) g/dL Globulin 4.8 H (2.3-3.5) g/dL Albumin/Globulin Ratio 0.6 L (1.2-2.2) Blood Type 03/16/20 03/16/20 Range/Units 07:30 11:30 WBC (4.5-11.0) K/uL RBC (4.30-5.90) M/uL Hgb (12.0-15.0) g/dL Hct (40.0-54.0) % MCV (80-98) fL MCH (27-31) pg MCHC (32-36) % Plt Count (150-400) K/uL Neut % (Auto) (36-66) % Lymph % (Auto) (24-44) % Carson % (Auto) (2-6) % Eos % (Auto) (2-4) % Baso % (Auto) (0-1) % PT (9.5-12.0) sec INR (0.80-1.20) D-Dimer, Quantitative (0.0-500.0) ng/mL Sodium (140-148) mmol/L Potassium (3.6-5.2) mmol/L Chloride (100-108) mmol/L Carbon Dioxide (21-32) mmol/L Anion Gap (5.0-14.0) mmol/L BUN (7-18) mg/dL Creatinine (0.8-1.3) mg/dL Est Cr Clr Drug Dosing mL/min Estimated GFR (MDRD) (>60) Glucose (74-106) mg/dL POC Glucose 245 H 208 H (74-106) MG/DL Calcium (8.5-10.1) mg/dL Ferritin (8-388) ng/ml Total Bilirubin (0.2-1.0) mg/dL AST (15-37) U/L ALT (12-78) U/L Alkaline Phosphatase (46-116) U/L C-Reactive Protein (0.0-0.3) mg/dL Total Protein (6.4-8.2) g/dL Albumin (3.4-5.0) g/dL Globulin (2.3-3.5) g/dL Albumin/Globulin Ratio (1.2-2.2) Blood Type Med Orders - Current: Current Medications Acetaminophen (Tylenol) 650 mg PO Q4H PRN PRN Reason: Fever Greater Than 101 Last Admin: 03/16/20 01:45 Dose: 650 mg Documented by: Albuterol/Ipratropium (Combivent Respimat) 1 gm INH Q4H PRN PRN Reason: Dyspnea Last Admin: 03/15/20 00:39 Dose: 2 puff Documented by: Atorvastatin Calcium (Lipitor) 20 mg PO DAILY [facility] Last Admin: 03/16/20 08:19 Dose: 20 mg Documented by: Remdesivir 100 mg/ Sodium (Chloride) 100 mls @ 100 mls/hr IV Q24H [facility] Stop: 03/19/20 02:59 Last Admin: 03/16/20 01:45 Dose: 100 mls/hr Documented by: Influenza Virus Vaccine (Fluzone High-Dose Quad ) 240 mcg IM .ONCE ONE Stop: 03/17/20 10:01 Insulin Glargine (Lantus Solostar) 30 units SUBCUT QAM [facility] Last Admin: 03/16/20 08:03 Dose: 30 units Documented by: Insulin Human Lispro (Humalog) 0 unit SUBCUT QIDACANDBED [facility]; Protocol Last Admin: 03/16/20 13:02 Dose: 2 units Documented by: Pantoprazole Sodium (Protonix) 40 mg PO ACBREAKFAST [facility] Last Admin: 03/16/20 08:19 Dose: 40 mg Documented by: Discontinued Medications Dexamethasone (Decadron) 6 mg IVPUSH DAILY [facility] Stop: 03/23/20 09:01 Last Admin: 03/15/20 02:45 Dose: 6 mg Documented by: Dexamethasone (Decadron) 6 mg IVPUSH Q24H [facility] Stop: 03/23/20 22:01 Last Admin: 03/15/20 21:47 Dose: 6 mg Documented by: Remdesivir 200 mg/ Sodium (Chloride) 250 mls @ 250 mls/hr IV ONETIME ONE Stop: 03/15/20 02:23 Last Admin: 03/15/20 03:12 Dose: 250 mls/hr Documented by: Influenza Virus Vaccine (Pharmacy To Dose - Influenza Vaccine) 1 each IM ONETIME ONE Stop: 03/17/20 10:01 Warfarin Sodium (Coumadin) 5 mg PO DAILY@1300 [facility] Last Admin: 03/15/20 15:00 Dose: 5 mg Documented by: - Exam Quality Assessment: No: Supplemental Oxygen General: Alert, Oriented, Cooperative, No Acute Distress Lungs: Normal Respiratory Effort. No: Wheezing Cardiovascular: Regular Rate, Regular Rhythm GI/Abdominal Exam: Soft, No Distention Extremities: No Pedal Edema. No: Increased Warmth Skin: Warm, Dry Psy/Mental Status: Alert, Normal Affect Sepsis Event Note - Evaluation Sepsis Screening Result: No Definite Risk - Focused Exam Vital Signs: Vital Signs Temp Pulse Resp BP Pulse Ox Pulse Ox 03/16/20 13:03 94 L 03/16/20 11:00 36.4 C 68 16 142/76 H 95 03/16/20 07:47 97 03/16/20 07:00 36.4 C 65 18 107/62 91 L 03/16/20 04:00 99 03/16/20 03:05 35.8 C L 59 L 16 118/72 96 - Problem List Review Problem List Initiated/Reviewed/Updated: Yes - My Orders Last 24 Hours: My Active Orders 03/16/20 22:00 dexAMETHasone 6 mg PO Q24H 03/17/20 05:00 INR,PT,PROTHROMBIN TIME [COAG] Timed - Plan Plan:: ASSESSMENT AND PLAN COVID-19 INFECTION-seems to be responding to treatment with less hypoxia and decreasing symptoms. Tolerating current cares and medications. -Supportive care, prone ventilation if possible -Limit IV fluids, furosemide as needed -Remdesivir 100 mg IV daily for 4 days (day 1 of 4) -dexamethasone 6 mg daily for 5 to 10 days, today is day 2 -Convalescent plasma, 1 unit daily x3 days, today is day 2 of 3 HYPOXIC RESPIRATORY COMPROMISE-secondary to COVID-19 and bilateral pneumonia -Continuous pulse oximetry -Supplemental oxygen as needed PULMONARY FIBROSIS-does not require supplemental oxygen at baseline. TYPE 2 DIABETES MELLITUS-sugars acceptable so far. -Continue outpatient management -4 times daily glucometers -Low-dose sliding scale Humalog HISTORY OF DEEP VEIN THROMBOSIS AND PULMONARY EMBOLISM-INR supratherapeutic today. -Hold warfarin -Daily INR MAINTENANCE ISSUES -DVT prophylaxis; warfarin -GI prophylaxis; not indicated -Barrientos catheter; not indicated -Nutrition; regular diet DISPOSITION-anticipate discharge to home after the hospital stay. Torrey Gray MD
[2020-03-16] MEDS: Dexamethasone 2 MG Tab PO SCH (21:12)
[2020-03-17] MEDS: REMDESIVIR 100 MG in Sodium Chloride 0.9% 100 ML IV SCH (01:51)
[2020-03-17] MEDS: Acetaminophen 325 MG Tab PO PRN ×2 (08:10→21:32)
[2020-03-17] MEDS: Pantoprazole 40 MG Tab.CR PO SCH (08:11)
[2020-03-17] MEDS: atorvaSTATin 20 MG Tab PO SCH (08:11)
[2020-03-17] MEDS: Insulin Lispro 100 Unit/ML 3 ML KwikPen SUBCUT SCH ×4 (08:13→21:26)
[2020-03-17] MEDS: Insulin Glargine,Human Rec. Analog 100 Units/ML 3 ML Pen SUBCUT SCH (08:14)
[2020-03-17] MEDS ORDERED: FLU Vacc QV2020-21(65YR UP)/PF 240 MCG/0.7 ML Syringe IM ONE (10:00)
--- NOTE | 2020-03-17 14:41 | PCM.PN ---
- General Info Date of Service: 03/17/20 Subjective Update: No acute events overnight. Mild headache today but otherwise feeling okay. Mild shortness of breath mostly with activity. He has been off supplemental oxygen. He did take a shower today and does completely exhausted and was quite winded after taking a shower. He has not had any fevers. Appetite improving. No abdominal pain or nausea. Functional Status: Reports: Pain Controlled, Tolerating Diet - Review of Systems General: Reports: Weakness, Fatigue. Denies: Fever Pulmonary: Reports: Cough (mild) - Patient Data Vitals - Most Recent: Last Vital Signs Temp 35.7 C L 03/17/20 13:59 Pulse 51 L 03/17/20 13:59 Resp 18 03/17/20 13:59 BP 129/79 03/17/20 13:59 Pulse Ox 94 L 03/17/20 13:59 Weight - Most Recent: 104.553 kg I&O - Last 24 Hours: Intake & Output 03/16/20 03/17/20 03/17/20 22:59 06:59 14:59 Intake Total 216 570 360 Output Total 500 1500 Balance -284 -930 360 Lab Results Last 24 Hours: Laboratory Results - last 24 hr 03/15/20 03/16/20 03/16/20 Range/Units 00:20 16:30 21:27 PT (9.5-12.0) sec INR (0.80-1.20) POC Glucose 168 H 225 H (74-106) MG/DL Blood Type AB POSITIVE 03/17/20 03/17/20 03/17/20 Range/Units 04:10 07:30 11:30 PT 46.8 H (9.5-12.0) sec INR 4.42 H* (0.80-1.20) POC Glucose 325 H 218 H (74-106) MG/DL Blood Type Med Orders - Current: Current Medications Acetaminophen (Tylenol) 650 mg PO Q4H PRN PRN Reason: Fever Greater Than 101 Last Admin: 03/17/20 08:10 Dose: 650 mg Documented by: Albuterol/Ipratropium (Combivent Respimat) 1 gm INH Q4H PRN PRN Reason: Dyspnea Last Admin: 03/15/20 00:39 Dose: 2 puff Documented by: Atorvastatin Calcium (Lipitor) 20 mg PO DAILY [facility] Last Admin: 03/17/20 08:11 Dose: 20 mg Documented by: Dexamethasone (Dexamethasone) 6 mg PO Q24H [facility] Last Admin: 03/16/20 21:12 Dose: 6 mg Documented by: Remdesivir 100 mg/ Sodium (Chloride) 100 mls @ 100 mls/hr IV Q24H [facility] Stop: 03/19/20 02:59 Last Admin: 03/17/20 01:51 Dose: 100 mls/hr Documented by: Influenza Virus Vaccine (Fluzone High-Dose Quad ) 240 mcg IM .ONCE ONE Stop: 03/18/20 09:01 Insulin Glargine (Lantus Solostar) 30 units SUBCUT QAM [facility] Last Admin: 03/17/20 08:14 Dose: 30 units Documented by: Insulin Human Lispro (Humalog) 0 unit SUBCUT QIDACANDBED [facility]; Protocol Last Admin: 03/17/20 11:51 Dose: 2 units Documented by: Pantoprazole Sodium (Protonix) 40 mg PO ACBREAKFAST [facility] Last Admin: 03/17/20 08:11 Dose: 40 mg Documented by: Discontinued Medications Dexamethasone (Decadron) 6 mg IVPUSH DAILY [facility] Stop: 03/23/20 09:01 Last Admin: 03/15/20 02:45 Dose: 6 mg Documented by: Dexamethasone (Decadron) 6 mg IVPUSH Q24H [facility] Stop: 03/23/20 22:01 Last Admin: 03/15/20 21:47 Dose: 6 mg Documented by: Remdesivir 200 mg/ Sodium (Chloride) 250 mls @ 250 mls/hr IV ONETIME ONE Stop: 03/15/20 02:23 Last Admin: 03/15/20 03:12 Dose: 250 mls/hr Documented by: Influenza Virus Vaccine (Pharmacy To Dose - Influenza Vaccine) 1 each IM ONETIME ONE Stop: 03/17/20 10:01 Warfarin Sodium (Coumadin) 5 mg PO DAILY@1300 [facility] Last Admin: 03/15/20 15:00 Dose: 5 mg Documented by: - Exam Quality Assessment: No: Supplemental Oxygen General: Alert, Oriented, Cooperative, No Acute Distress Lungs: Normal Respiratory Effort. No: Wheezing GI/Abdominal Exam: Soft, No Distention Extremities: No Pedal Edema. No: Increased Warmth Skin: Warm, Dry Psy/Mental Status: Alert, Normal Affect Sepsis Event Note - Evaluation Sepsis Screening Result: No Definite Risk - Focused Exam Vital Signs: Vital Signs Temp Temp Pulse Resp BP BP Pulse Ox 03/17/20 13:59 35.7 C L 51 L 18 129/79 94 L 03/17/20 13:06 96 03/17/20 10:40 35.7 C L 60 16 115/82 95 03/17/20 08:00 35.8 C L 66 16 146/84 H 95 03/17/20 07:23 94 L 03/17/20 03:14 36.1 C 58 L 20 114/69 91 L - Problem List Review Problem List Initiated/Reviewed/Updated: Yes - My Orders Last 24 Hours: My Active Orders 03/16/20 22:00 dexAMETHasone 6 mg PO Q24H 03/17/20 14:39 Communication Order [RC] PRN Communication Order [RC] PRN 03/17/20 17:00 Insulin Lispro [HumaLOG] See Protocol SUBCUT QIDACANDBED - Plan Plan:: ASSESSMENT AND PLAN COVID-19 INFECTION-ongoing improvement with current medications and cares. Off oxygen for 24 hours. Still quite weak and fatigued but otherwise doing well. -Volume status appropriate today -Remdesivir 100 mg IV daily for 4 days (day 2 of 4) -dexamethasone 6 mg daily for 5 to 10 days, today is day 3 -Convalescent plasma, 1 unit daily x3 days, today is day 3 of 3 HYPOXIC RESPIRATORY FAILURE-secondary to COVID-19 and bilateral pneumonia. He has been off supplemental oxygen for 24 hours. -Continuous pulse oximetry -Supplemental oxygen as needed PULMONARY FIBROSIS-does not require supplemental oxygen at baseline. TYPE 2 DIABETES MELLITUS-sugars acceptable so far. -Continue outpatient management -4 times daily glucometers -Low-dose sliding scale Humalog HISTORY OF DEEP VEIN THROMBOSIS AND PULMONARY EMBOLISM-INR still supratherapeutic today. -Hold warfarin again today -Daily INR MAINTENANCE ISSUES -DVT prophylaxis; warfarin -GI prophylaxis; not indicated -Barrientos catheter; not indicated -Nutrition; regular diet DISPOSITION-anticipate discharge to home after the hospital stay, possibly tomorrow if stable overnight Torrey Gray MD
[2020-03-17] MEDS: Dexamethasone 2 MG Tab PO SCH (21:32)
[2020-03-18] MEDS: REMDESIVIR 100 MG in Sodium Chloride 0.9% 100 ML IV SCH (01:16)
[2020-03-18] MEDS: Acetaminophen 325 MG Tab PO PRN (01:20)
[2020-03-18] MEDS ORDERED: guaiFENesin/Dextromethorphan 100-10 MG/5 ML Soln 10 ML Cup PO PRN (02:00)
[2020-03-18] MEDS ORDERED: FLU Vacc QV2020-21(65YR UP)/PF 240 MCG/0.7 ML Syringe IM ONE (09:00)
[2020-03-18] MEDS: Pantoprazole 40 MG Tab.CR PO SCH (09:13)
[2020-03-18] MEDS: atorvaSTATin 20 MG Tab PO SCH (09:13)
[2020-03-18] MEDS: Insulin Lispro 100 Unit/ML 3 ML KwikPen SUBCUT SCH ×3 (09:15→16:33)
[2020-03-18] MEDS: Insulin Glargine,Human Rec. Analog 100 Units/ML 3 ML Pen SUBCUT SCH (09:15)
--- NOTE | 2020-03-18 13:43 | PCM.DCSUM1 ---
Discharge Summary - Hospital Course Brief History: 64-year-old male with history of insulin-dependent diabetes and mild COPD who presented with increasing cough, shortness of breath and fever. He was admitted for management of bilateral pneumonia with hypoxic respiratory failure caused by COVID-19. Diagnosis: Stroke: No - Discharge Data Discharge Date: 03/18/20 Discharge Disposition: Home, Self-Care 01 Condition: Good - Referral to Home Health Primary Care Physician: Handy Parisi MD - Discharge Diagnosis/Problem(s) (1) Pneumonia due to COVID-19 virus SNOMED Code(s): 873312640512453481 ICD Code: U07.1 - COVID-19; J12.89 - OTHER VIRAL PNEUMONIA Status: Acute (2) Acute respiratory failure due to COVID-19 SNOMED Code(s): 660647012 ICD Code: U07.1 - COVID-19; J96.00 - ACUTE RESPIRATORY FAILURE, UNSP W HYPOXIA OR HYPERCAPNIA Status: Acute (3) IDDM (insulin dependent diabetes mellitus) SNOMED Code(s): 35232897 ICD Code: [id number] - Status: Chronic - Patient Summary/Data Hospital Course: Niko presented to the emergency room with cough, shortness of breath and congestion. Work-up in the emergency room suggested a COVID-19 pneumonia with acute hypoxic respiratory failure. He was admitted to the hospital for further management. He was placed in isolation precautions. He was started on dexamethasone, remdesivir as well as convalescent plasma. Additional supportive cares were also provided. We did follow serial laboratory studies. Over the next several days we saw steady improvement. He had improvements in his respiratory status and we were able to wean him off his supplemental oxygen. Symptomatically his cough has been improving. Strength and appetite have both been improving. He tolerated infusion of both the convalescent plasma and remdesivir during the hospital stay. We did note a supratherapeutic INR and his warfarin was held for 3 days during the hospital stay. There were no significant complications. He has improved well. The plan is for him to have 4 more days of steroids after hospital discharge. He has completed treatment with a convalescent plasma and has had 3 days of remdesivir. He will follow up in 1 to 2 weeks. - Patient Instructions Diet: Diabetic Diet Activity: As Tolerated Driving: May Drive Today Showering/Bathing: May Shower Notify Provider of: Fever, Increased Pain Other/Special Instructions: 1. You were in the hospital for management of bilateral pneumonia caused by COVID-19 infection. Your condition has been improving with therapies provided in the hospital including steroids, convalescent plasma and remdesivir. You have completed adequate treatment with the convalescent plasma and remdesivir but I do recommend 4 additional days of steroids. You should take 6 mg of dexamethasone once daily at 9 PM. Your first dose outside of the hospital will be due tonight. You can increase your activity towards normal but I anticipate that she will be weak and fatigue quickly compared to your baseline. This should improve slowly over the next several days to maybe several weeks. There are no specific limitations as far as your activity but if you become fatigued or short of breath you should rest. I recommend that you maintain quarantine until Monday. You may return to your usual activities starting next Monday assuming you do not have any fevers or progression of symptoms between now and then. 2. You should hold your warfarin today but you may resume your normal dosing starting on tomorrow (). 3. Continue your other home medications as previously prescribed. - Discharge Plan *PRESCRIPTION DRUG MONITORING PROGRAM REVIEWED*: Not Applicable *COPY OF PRESCRIPTION DRUG MONITORING REPORT IN PATIENT SUAD: Not Applicable Prescriptions/Med Rec: dexAMETHasone [Dexamethasone] 6 mg PO Q24H #12 tablet Home Medications: Home Meds Insulin Glarg,Human.Rec.Analog [Lantus] 30 unit SQ QAM 01/07/14 [History] Omeprazole 20 mg PO DAILY 01/07/14 [History] SitaGLIPtin [Januvia] 100 mg PO DAILY 01/07/14 [History] atorvaSTATin [Lipitor] 20 mg PO DAILY 01/07/14 [History] Insulin Aspart [NovoLOG] See Protocol SQ WITHMEALSANDBED PRN 03/15/20 [History] Warfarin Sliding Scale [Coumadin Sliding Scale] 5 each PO DAILY 03/16/20 [History] dexAMETHasone [Dexamethasone] 6 mg PO Q24H #12 tablet 03/18/20 [Rx] Oxygen Therapy Mode: Room Air Patient Handouts: COVID-19, Prevent the Spread of COVID-19 if You Are Sick - [facility] Referrals: Handy Parisi MD [Primary Care Provider] - 12/01/20 10:20 am (f/u in 1-2 weeks - f/u hospital stay for Covid 19 with pneumonia) - Discharge Summary/Plan Comment DC Time >30 min.: Yes (34- covid counseling) - Patient Data Vitals - Most Recent: Last Vital Signs Temp 36.3 C 03/18/20 10:57 Pulse 66 03/18/20 10:57 Resp 18 03/18/20 10:57 BP 138/82 03/18/20 10:57 Pulse Ox 95 03/18/20 12:44 Weight - Most Recent: 104.553 kg I&O - Last 24 hours: Intake & Output 03/17/20 03/18/20 03/18/20 22:59 06:59 14:59 Intake Total 1499 200 240 Output Total 1999 Balance -501 200 240 Lab Results - Last 24 hrs: Laboratory Results - last 24 hr 03/15/20 03/17/20 03/17/20 Range/Units 00:20 16:29 21:09 PT (9.5-12.0) sec INR (0.80-1.20) POC Glucose 277 H 270 H (74-106) MG/DL Blood Type AB POSITIVE 03/18/20 03/18/20 03/18/20 Range/Units 07:31 08:21 11:30 PT 32.9 H (9.5-12.0) sec INR 3.09 H (0.80-1.20) POC Glucose 246 H 188 H (74-106) MG/DL Blood Type Med Orders - Current: Current Medications Acetaminophen (Tylenol) 650 mg PO Q4H PRN PRN Reason: Fever Greater Than 101 Last Admin: 03/18/20 01:20 Dose: 650 mg Documented by: Albuterol/Ipratropium (Combivent Respimat) 1 gm INH Q4H PRN PRN Reason: Dyspnea Last Admin: 03/15/20 00:39 Dose: 2 puff Documented by: Atorvastatin Calcium (Lipitor) 20 mg PO DAILY [facility] Last Admin: 03/18/20 09:13 Dose: 20 mg Documented by: Dexamethasone (Dexamethasone) 6 mg PO Q24H [facility] Last Admin: 03/17/20 21:32 Dose: 6 mg Documented by: Guaifenesin/Dextromethorphan (Robitussin Dm) 10 ml PO Q4H PRN PRN Reason: Cough Last Admin: 03/18/20 02:12 Dose: 10 ml Documented by: Remdesivir 100 mg/ Sodium (Chloride) 100 mls @ 100 mls/hr IV Q24H [facility]PL[facility] Stop: 03/19/20 02:59 Last Admin: 03/18/20 01:16 Dose: 100 mls/hr Documented by: Insulin Glargine (Lantus Solostar) [facility] Last Admin: 03/18/20 09:15 Dose: 30 units Documented by: Insulin Human Lispro (Humalog) 0 unit SUBCUT QIDACANDBED [facility]PL[facility]ED [facility]; Protocol Last Admin: 03/18/20 12:22 Dose: 2 units Documented by: Pantoprazole Sodium (Protonix) 40 mg PO ACBREAKFAST [facility]PL[facility] Last Admin: 03/18/20 09:13 Dose: 40 mg Documented by: Discontinued Medications Dexamethasone (Decadron) 6 mg IVPUSH DAILY [facility] Stop: 03/23/20 09:01 Last Admin: 03/15/20 02:45 Dose: 6 mg Documented by: Dexamethasone (Decadron) 6 mg IVPUSH Q24H [facility]PL[facility] Stop: 03/23/20 22:01 Last Admin: 03/15/20 21:47 Dose: 6 mg Documented by: Remdesivir 200 mg/ Sodium (Chloride) 250 mls @ 250 mls/hr IV ONETIME ONE Stop: 03/15/20 02:23 Last Admin: 03/15/20 03:12 Dose: 250 mls/hr Documented by: Influenza Virus Vaccine (Pharmacy To Dose - Influenza Vaccine) 1 each IM ONETIME ONE Stop: 03/17/20 10:01 Influenza Virus Vaccine (Fluzone High-Dose Quad 2019-) 240 mcg IM .ONCE ONE Stop: 03/18/20 09:01 Last Admin: 03/18/20 09:13 Dose: 240 mcg Documented by: Insulin Human Lispro (Humalog) 0 unit SUBCUT QIDACANDBED REPLACED BY [facility]; Protocol Last Admin: 03/17/20 11:51 Dose: 2 units Documented by: Warfarin Sodium (Coumadin) 5 mg PO DAILY@1300 REPLACED BY [facility] Last Admin: 03/15/20 15:00 Dose: 5 mg Documented by:
== END 2020-03-18 16:48 | disposition home or self-care (01) | DRG 177 ==
LOC: JP.ED 23:04 → JP.2SS 03-15 02:35
PROVIDERS: ADMIT Family Medicine; ATTEND Internal Medicine
PROC: 8E0ZXY6 Isolation (ICD-10-PCS; principal; 2020-03-15)
PROC: XW13325 Transfusion of Convalescent Plasma (Nonautologous) into Peripheral Vein, Percutaneous Approach, New Technology Group 5 (ICD-10-PCS; 2020-03-15)
PROC: XW033E5 Introduction of Remdesivir Anti-infective into Peripheral Vein, Percutaneous Approach, New Technology Group 5 (ICD-10-PCS; 2020-03-15)
DX: U07.1 COVID-19 (principal); J96.01 Acute respiratory failure with hypoxia; J12.89 Other viral pneumonia; E11.9 Type 2 diabetes mellitus without complications; J44.9 Chronic obstructive pulmonary disease, unspecified; R79.1 Abnormal coagulation profile; G89.29 Other chronic pain; M54.9 Dorsalgia, unspecified; E78.5 Hyperlipidemia, unspecified; Z88.5 Allergy status to narcotic agent; Z79.4 Long term (current) use of insulin; Z79.01 Long term (current) use of anticoagulants; Z79.899 Other long term (current) drug therapy; Z87.891 Personal history of nicotine dependence; Z86.718 Personal history of other venous thrombosis and embolism; Z86.711 Personal history of pulmonary embolism
CPT/HCPCS: 36415; 36600; 71045 ×2; 80048; 80076; 82728; 82803; 83605; 83615; 84145; 85025; 85379; 85610; 86140; 86900; 86901; 87804 ×2; 99285; A9270; U0002; 36430; 80053; 82962; 90662; 94762; G0008; J1100; J1815; J1815-GY; J7050; J8540; P9017

== ENCOUNTER 2020-05-17 18:36 | Observation (INO) | payer OTHER, MEDICARE ==
--- NOTE | 2020-05-17 19:39 | EDM.PDOC ---
ED HPI GENERAL MEDICAL PROBLEM - General Chief Complaint: Back Pain or Injury Stated Complaint: [facility] Time Seen by Provider: 05/17/20 18:44 Source of Information: Reports: Patient, EMS, Family History Limitations: Reports: No Limitations - History of Present Illness INITIAL COMMENTS - FREE TEXT/NARRATIVE: Niko is a 65-year-old male presenting to the ED by [facility] for acute on chronic exacerbation of low back pain. The patient has a very long history of back issues including at least 6 back surgeries, implantation of a neurostimulator in his lumbar spine, and fusion of L4-S1. Patient reports the first several surgeries for his back or discectomies. He then had a keyhole laminectomy followed by posterior rods. The appliance fractured requiring a fusion through anterior immobilization with plates again at the level of L4-S1. The patient was in his usual state of health when he slipped on the ice 3 days ago. Although he was kelvin he did not fall to the ground. He did experience some low back pain with this episode but was able to tolerate it. Today he was bent over cleaning out a dryer vent at his son's house in [place] when he said his "back locked up" and he was unable to get back up. The son actually had to move his car closer to him in order to help his dad get into the car. The patient drove from [place] back to [place] at times experiencing difficulty with using the brake or steering and when he arrived back in [place] he was unable to get out of the car. The ended up calling EMS who then brought him in for evaluation. Patient denies any loss of bowel or bladder control, saddle anesthesia, new onset of numbness or tingling. Patient states that his legs have been giving out more frequently recently. Despite having a neuromodulation stimulator, he still having severe back pain. He denies any other trauma. low back Pain Score (Numeric/FACES): 3 - Related Data Allergies Allergy/AdvReac Type Severity Reaction Status Date / Time codeine Allergy Swelling Verified 05/17/20 19:00 Home Meds: Home Meds Insulin Glarg,Human.Rec.Analog [Lantus] 35 unit SQ QAM 01/07/14 [History] Omeprazole 20 mg PO DAILY 01/07/14 [History] atorvaSTATin [Lipitor] 20 mg PO DAILY 01/07/14 [History] Warfarin Sliding Scale [Coumadin Sliding Scale] 2.5 - 5 mg PO ASDIRECTED 03/16/20 [History] Insulin Aspart [NovoLOG] 0 - 20 units SUBCUT TIDMEALS 05/17/20 [History] metFORMIN [Glucophage XR] 1,000 mg PO BIDMEALS 05/17/20 [History] Past Medical History Cardiovascular History: Reports: High Cholesterol Respiratory History: Reports: COPD, PE Gastrointestinal History: Reports: Colon Polyp, GERD Musculoskeletal History: Reports: Back Pain, Chronic Neurological History: Reports: Seizure Endocrine/Metabolic History: Reports: Diabetes, Type II Hematologic History: Reports: Anticoagulation Therapy - Infectious Disease History Infectious Disease History: Reports: Chicken Pox, Measles, Mumps - Past Surgical History GI Surgical History: Reports: Colonoscopy, Hernia, Inguinal Neurological Surgical History: Reports: Discectomy, Lumbar Spine, Spinal Fusion Musculoskeletal Surgical History: Reports: Other (See Below) Other Musculoskeletal Surgeries/Procedures:: back surgeries, implanted TENS unit Social & Family History - Family History Family Medical History: No Pertinent Family History - Tobacco Use Tobacco Use Status *Q: Former Tobacco User Used Tobacco, but Quit: Yes Month/Year Tobacco Last Used: 2000 - Caffeine Use Caffeine Use: Reports: Coffee, Soda - Alcohol Use Days Per Week of Alcohol Use: 1 Number of Drinks Per Day: 1 Total Drinks Per Week: 1 - Recreational Drug Use Recreational Drug Use: No ED ROS GENERAL - Review of Systems Review Of Systems: See Below Constitutional: Reports: No Symptoms HEENT: Reports: No Symptoms Respiratory: Reports: No Symptoms Cardiovascular: Reports: No Symptoms GI/Abdominal: Reports: No Symptoms : Reports: No Symptoms. Denies: Incontinence Musculoskeletal: Reports: Back Pain (Acute on chronic low back pain) Skin: Reports: No Symptoms. Denies: Bruising Neurological: Reports: Difficulty Walking, Weakness (Intermittent bilateral lower extremity weakness). Denies: Numbness, Tingling ED EXAM,LOWER BACK PAIN/INJURY - Physical Exam Exam: See Below Exam Limited By: No Limitations General Appearance: Anxious, Severe Distress Eye Exam: Bilateral Eye: EOMI, PERRL Throat/Mouth: Normal Inspection, Normal Voice, No Airway Compromise Head: Atraumatic, Normocephalic Respiratory/Chest: Lungs Clear Back Exam: Decreased Range of Motion, Muscle Spasm (Significant left-sided lumbar paraspinal muscle spasm tenderness to palpation), Paraspinal Tenderness, Vertebral Tenderness (L3, L4, L5, S1) Extremities: Normal Range of Motion Neurological: Alert, Oriented x 3 (Done to phobia Dr. Tunde Castañeda am the master of trivia although it is my daughter who is also a master trivia and we will just inoculate the trivia game at the bar I am horrible at naked twister what is the one something against the man I get my my oldest daughter brought back Deondre for some free gas reason she decided we will play it 1 night no I was at the cabin no they did not like my answers when I got the gross his legs are C this was the patient had no me find it I took a video and just completed distally there is nothing identifiable in and and she gave me permission notes probably worse.) Course - Vital Signs Last Recorded V/S: Last Vital Signs Temp 36.3 C 05/17/20 18:37 Pulse 95 05/17/20 20:15 Resp 18 05/17/20 20:15 BP 131/85 05/17/20 20:15 Pulse Ox 90 L 05/17/20 20:15 - Orders/Labs/Meds Meds: Medications Discontinued Medications Generic Name Dose Route Start Last Admin Trade Name Freq PRN Reason Stop Dose Admin Methocarbamol 1,000 mg 05/17/20 20:55 05/17/20 21:18 Robaxin PO 05/17/20 20:56 1,000 mg ONETIME ONE Administration - Radiology Interpretation Free Text/Narrative:: 05/17/2020 20:05 CT of the lumbar spine without contrast: Comparison was made to a CT of the abdomen and pelvis on 01/07/2014. Only axial and coronal images were available for this comparison. Findings: 5 lumbar type vertebral bodies. By pedicle héctor screw fixation posteriorly at L4-S1. Anterior plate and screw fixation at L5-S1 with interbody graft. Bony fusion at this level. Hardware appears to be intact without hardware failure. No acute vertebral body fracture. No critical central canal or neuroforaminal stenosis. Streak artifact at lower levels limits evaluation. No paraspinal hematoma. Neurostimulator leads entering at T12 level. Read by Dr. Carolyn Cross.l - Re-Assessments/Exams Free Text/Narrative Re-Assessment/Exam: 05/17/20 21:00 the patient appears to be relatively comfortable until any movement occurs and then he has paroxysms of pain likely secondary to paraspinal muscle spasm especially on the left. We will try methocarbamol 1 g p.o. to see if this helps alleviate some of the spasm in the paraspinal muscle group. I suspect that the patient will not likely need to be hospitalized for pain control until this starts to recover. There does not appear to be any acute spinal findings or failure of the devices. Moreover, the patient has a symmetric neurologic exam. Unfortunately we do not have a device to interrogate his [place] neurostimulator. We will reassess after the methocarbamol has had time to take effect. 05/17/20 21:52 I went to recheck on the patient and he still unable to move even on the bed without severe pain. We will bring him into the hospital for pain control. I discussed the case with Dr. Tabares who will come in to admit him for this purpose. Patient and are in agreement with this plan. Departure - Departure Time of Disposition: 21:52 Disposition: Admitted As Inpatient 65 Condition: Fair Clinical Impression: Acute exacerbation of chronic low back pain Acute lumbar myofascial strain Qualifiers: Encounter type: initial encounter Qualified Code(s): S39.012A - Strain of muscle, fascia and tendon of lower back, initial encounter - Discharge Information Referrals: PCP,None [Primary Care Provider] - Forms: ED Department Discharge Care Plan Goals: I discussed the case with Dr. Tabares. Currently at this time the patient will need to be admitted for pain control. I suspect that he may benefit from an evaluation from physical therapy. Sepsis Event Note (ED) - Evaluation Sepsis Screening Result: No Definite Risk - Focused Exam Vital Signs: Vital Signs Temp Pulse Resp BP Pulse Ox 05/17/20 20:15 95 18 131/85 90 L 05/17/20 19:00 87 18 122/75 93 L 05/17/20 18:37 36.3 C 98 20 127/73 93 L - Problem List & Annotations (1) Acute exacerbation of chronic low back pain SNOMED Code(s): 705251023 Code(s): M54.5 - LOW BACK PAIN; G89.29 - OTHER CHRONIC PAIN Status: Acute Priority: High Current Visit: Yes (2) Acute lumbar myofascial strain SNOMED Code(s): 562524311, 64919391, 742499820 Code(s): S39.012A - STRAIN OF MUSCLE, FASCIA AND TENDON OF LOWER BACK, INIT Status: Acute Priority: High Current Visit: Yes Qualifiers: Encounter type: initial encounter Qualified Code(s): S39.012A - Strain of muscle, fascia and tendon of lower back, initial encounter - Problem List Review Problem List Initiated/Reviewed/Updated: Yes
--- NOTE | 2020-05-17 20:30 | CRLCT ---
INDICATION: Acute on chronic low back pain. Status post multiple surgeries. Slipped on ice a couple days ago. Pain progressively getting worse. TECHNIQUE: Multiaxial CT images of the lumbar spine were obtained without contrast. Coronal and sagittal reformats using bone and soft tissue algorithm. COMPARISON: CT abdomen 01/07/2014 FINDINGS: Postoperative changes of L4-S1 instrumented fusion with bilateral pedicle screw and héctor fixation as well as anterior plate and screw fixation at L5-S1. There is mature interbody fusion at L4-S1. Spinal stimulator electrodes enter the dorsal epidural space at T12-L1 and ascend superiorly out of the field of view. Chronic laminectomy changes L5-S1. Bridging anterior osteophytes of the bilateral sacroiliac joints. No fractures. There is straightening of lumbar spine alignment. No aggressive osseous lesions. No prevertebral or paraspinal soft tissue swelling. Findings at individual levels are noted as follows: T12-L1: No spinal canal stenosis or neural foramina narrowing. L1-2: Mild interspace narrowing. Mild disc bulge and endplate osteophytic spurring. Mild spinal canal narrowing. No neural foramina narrowing. L2-3: Mild disc bulge without significant spinal canal stenosis or neural foramina narrowing. L3-4: Mild disc bulge. No significant spinal canal stenosis or neural foramina narrowing. L4-5: Laminectomy postoperative changes. No spinal canal stenosis or neural foramina narrowing. L5-S1: Postoperative changes. No spinal canal stenosis. Mild bony left neural foramina narrowing. No right neural foraminal narrowing. IMPRESSION: 1. No evidence of acute lumbar spine abnormality. 2. Postoperative changes of L4-S1 posterior instrumented fusion at L5-S1 anterior fusion. Mature interbody fusion at L4-S1. Spinal stimulator electrodes enter the dorsal epidural space at T12-L1. 3. Mild spinal canal narrowing at L1-2. Mild left neural foramina narrowing at L5-S1. 4. Bridging anterior osteophytes of the bilateral sacroiliac joints Please note that all CT scans at this facility use dose modulation, iterative reconstruction, and/or weight-based dosing when appropriate to reduce radiation dose to as low as reasonably achievable. Dictated by Delio Carnes MD @ May 18 2020 8:13AM Signed by Dr. Delio Carnes @ May 18 2020 8:23AM
[2020-05-17] MEDS ORDERED: Methocarbamol 500 MG Tab PO ONE (20:55)
[2020-05-17] MEDS ORDERED: HYDROmorphone 1 MG/ML Syringe IVPUSH ONE (21:58)
[2020-05-17] MEDS ORDERED: Promethazine 12.5 MG in Sodium Chloride 0.9% 50 ML IV PRN (22:07)
[2020-05-17] MEDS ORDERED: Ondansetron 4 MG Tab.DIS PO PRN (22:07)
[2020-05-17] MEDS ORDERED: Morphine 2 MG/ML SYRINGE IVPUSH PRN (22:07)
[2020-05-17] MEDS ORDERED: Gabapentin 400 MG Cap PO ONE (22:12)
[2020-05-17] MEDS ORDERED: Bupivacaine 0.5% 10 ML SDV INJECT ONE (22:28)
--- NOTE | 2020-05-17 22:30 | PCM.HP.2 ---
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 When he bent over to help with a dryer vent, he felt a twinge in his back and started having immediate pain. He was able to get back in his car with the help of his son and drive home, but was unable to exit the vehicle and called EMS to help. They transported him to the hospital due to his pain. He wishes to be admitted knowing that he is under observation status. He denies any numbness tingling, difficulty with urination or stooling, SOB, NVDC, headaches, changes to Vision or hearing, or other symptoms besides back pain. Onset of Symptoms: Reports: Today, Sudden Duration of Symptoms: Reports: Hour(s):, Constant Location: Reports: Back Quality: Reports: Ache, Stabbing Improves with: Reports: Immobilization, Rest Worsens with: Reports: Movement Context: Reports: Exertion Associated Symptoms: Reports: No Other Symptoms low back Pain Score (Numeric/FACES): 3 - Related Data Allergies/Adverse Reactions: Allergies Allergy/AdvReac Type Severity Reaction Status Date / Time codeine Allergy Swelling Verified 05/17/20 19:00 Home Medications: Home Meds Insulin Glarg,Human.Rec.Analog [Lantus] 35 unit SQ QAM 01/07/14 [History] Omeprazole 20 mg PO DAILY 01/07/14 [History] atorvaSTATin [Lipitor] 20 mg PO DAILY 01/07/14 [History] Warfarin Sliding Scale [Coumadin Sliding Scale] 2.5 - 5 mg PO ASDIRECTED [History] Insulin Aspart [NovoLOG] 0 - 20 units SUBCUT TIDMEALS 05/17/20 [History] metFORMIN [Glucophage XR] 1,000 mg PO BIDMEALS 05/17/20 [History] Past Medical History Cardiovascular History: Reports: High Cholesterol Respiratory History: Reports: COPD, PE Gastrointestinal History: Reports: Colon Polyp, GERD Musculoskeletal History: Reports: Back Pain, Chronic Neurological History: Reports: Seizure Endocrine/Metabolic History: Reports: Diabetes, Type II Hematologic History: Reports: Anticoagulation Therapy - Infectious Disease History Infectious Disease History: Reports: Chicken Pox, Measles, Mumps - Past Surgical History GI Surgical History: Reports: Colonoscopy, Hernia, Inguinal Neurological Surgical History: Reports: Discectomy, Lumbar Spine, Spinal Fusion Musculoskeletal Surgical History: Reports: Other (See Below) Other Musculoskeletal Surgeries/Procedures:: back surgeries, implanted TENS unit Social & Family History - Family History Family Medical History: No Pertinent Family History - Tobacco Use Tobacco Use Status *Q: Former Tobacco User Used Tobacco, but Quit: Yes Month/Year Tobacco Last Used: 2000 - Caffeine Use Caffeine Use: Reports: Coffee, Soda - Alcohol Use Days Per Week of Alcohol Use: 1 Number of Drinks Per Day: 1 Total Drinks Per Week: 1 - Recreational Drug Use Recreational Drug Use: No H&P Review of Systems - Review of Systems: Review Of Systems: See Below General: Reports: No Symptoms. Denies: Fever, Chills HEENT: Reports: No Symptoms. Denies: Ear Pain, Eye Pain, Visual Changes Pulmonary: Reports: No Symptoms. Denies: Shortness of Breath Cardiovascular: Reports: No Symptoms. Denies: Chest Pain, Palpitations Gastrointestinal: Reports: No Symptoms. Denies: Abdominal Pain, Constipation, Diarrhea, Nausea, Vomiting Genitourinary: Reports: No Symptoms Musculoskeletal: Reports: Back Pain Exam - Exam Exam: See Below - Vital Signs Vital Signs: Last Vital Signs Temp 36.3 C 05/17/20 18:37 Pulse 95 05/17/20 20:15 Resp 18 05/17/20 20:15 BP 131/85 05/17/20 20:15 Pulse Ox 90 L 05/17/20 20:15 Weight: 104.326 kg - Exam General: Alert, Oriented, 4 HEENT: PERRLA, Hearing Intact, Mucosa Moist & [place], Nares Patent, Normal Nasal Septum, Posterior Pharynx Clear, Conjunctiva Clear, EOMI, EACs Clear, TMs Clear Neck: Supple, Trachea Midline, 2 Lungs: Clear to Auscultation, Normal Respiratory Effort Cardiovascular: Regular Rate, Regular Rhythm GI/Abdominal Exam: Normal Bowel Sounds, Soft, Non-Tender, No Organomegaly, No Distention, No Abnormal Bruit, No Mass, Pelvis Stable Back Exam: Paraspinal Tenderness (Left , lateral to L5) Skin: Warm, Dry, Intact Neurological: Cranial Nerves Intact Neuro Extensive - Mental Status: Alert, Oriented x3, Normal Mood/Affect, Normal Cognition Neuro Extensive - Motor, Sensory, Reflexes: CN II-XII Intact Psychiatric: Alert, Normal Affect, Normal Mood Sepsis Event Note - Evaluation Sepsis Screening Result: No Definite Risk - Focused Exam Vital Signs: Vital Signs Temp Pulse Resp BP Pulse Ox 05/17/20 20:15 95 18 131/85 90 L 05/17/20 19:00 87 18 122/75 93 L 05/17/20 18:37 36.3 C 98 20 127/73 93 L - Problem List (1) Acute exacerbation of chronic low back pain SNOMED Code(s): 677224121 ICD Code: M54.5 - LOW BACK PAIN; G89.29 - OTHER CHRONIC PAIN Status: Acute Priority: High Current Visit: Yes Onset Date: 05/17/20 Problem Details: Will give patient gabapentin 800mg on top of the dilaudid and robaxin given by the ER. Patient also agreeable to having a trigger point injection of his low back paraspinal muscles to help with the pain. Will also have ice packs available to help patient (2) Acute lumbar myofascial strain SNOMED Code(s): 174892514, 50833870, 993045571 ICD Code: S39.012A - STRAIN OF MUSCLE, FASCIA AND TENDON OF LOWER BACK, INIT Status: Acute Priority: High Current Visit: Yes Onset Date: ~05/17/20 Problem Details: Will give patient gabapentin 800mg on top of the dilaudid and robaxin given by the ER. Patient also agreeable to having a trigger point injection of his low back paraspinal muscles to help with the pain. Qualifiers: Encounter type: initial encounter Qualified Code(s): S39.012A - Strain of muscle, fascia and tendon of lower back, initial encounter (3) Diabetes mellitus SNOMED Code(s): 29339830 ICD Code: E11.9 - TYPE 2 DIABETES MELLITUS WITHOUT COMPLICATIONS Status: Acute Current Visit: Yes Problem Details: Will continue patient's metformin and check BG Qualifiers: Diabetes mellitus type: type 2 Diabetes mellitus halfway insulin use: without medical terminologist use Diabetes mellitus complication status: without complication Qualified Code(s): E11.9 - Type 2 diabetes mellitus without complications (4) Chronic GERD SNOMED Code(s): 788232417, 246970491 ICD Code: K21.9 - GASTRO-ESOPHAGEAL REFLUX DISEASE WITHOUT ESOPHAGITIS Status: Chronic Current Visit: No Problem Details: Will use protonix as prilosec is not available in the hospital (5) On anticoagulant therapy SNOMED Code(s): 939170051, 180449584 ICD Code: Z79.01 - NURSING HOME (CURRENT) USE OF ANTICOAGULANTS Status: Chronic Current Visit: No Problem Details: Patient uses for previous PE. WIll continue per pharmacy titration Problem List Initiated/Reviewed/Updated: Yes Orders Last 24hrs: Active Orders 24 hr Category Date Time Status Patient Status [ADT] Routine ADT 05/17/20 22:07 Ordered Ambulate [RC] QID Care 05/17/20 22:07 Ordered Blood Glucose Check, Bedside [RC] QIDACANDBED Care 05/17/20 22:07 Ordered Oxygen Therapy [RC] PRN Care 05/17/20 22:07 Ordered Pulse Oximetry [RC] CONTINUOUS Care 05/17/20 22:09 Ordered Up With Assistance [RC] ASDIRECTED Care 05/17/20 22:07 Ordered VTE/DVT Education [RC] Per Unit Routine Care 05/17/20 22:07 Ordered Vital Signs [RC] Q4H Care 05/17/20 22:07 Ordered Consistent Carbohydrate Diet [DIET] Diet 05/17/20 Breakfast Ordered INR,PT,PROTHROMBIN TIME [COAG] Routine Lab 05/17/20 22:12 Ordered Acetaminophen [TylenoL] Med 05/17/20 22:07 Ordered 650 mg PO Q4H PRN Bupivacaine 0.5% [Sensorcaine-MPF 0.5%] Med 05/17/20 22:28 Once 10 ml INJECT ONETIME ONE Gabapentin [Neurontin] Med 05/17/20 22:12 Once 800 mg PO ONETIME ONE Morphine Med 05/17/20 22:07 Ordered 2 mg IVPUSH Q2H PRN Ondansetron [Zofran ODT] Med 05/17/20 22:07 Ordered 4 mg PO Q8H PRN Promethazine [Phenergan] 12.5 mg Med 05/17/20 22:07 Ordered Sodium Chloride 0.9% [Normal Saline] 50 ml IV Q6H Warfarin Sliding Scale [Coumadin Sliding Scale] Med 05/18/20 09:00 Ordered 1 each PO DAILY metFORMIN [Glucophage] Med 05/18/20 08:00 Ordered 1,000 mg PO BIDMEALS oxyCODONE Med 05/17/20 22:07 Ordered 10 mg PO Q4H PRN Resuscitation Status Routine Resus Stat 05/17/20 22:07 Ordered Medication Orders Acetaminophen (Tylenol) 650 mg PO Q4H PRN PRN Reason: Pain (Mild 1-3)/fever Bupivacaine HCl (Sensorcaine-Mpf 0.5%) 10 ml INJECT ONETIME ONE Stop: 05/17/20 22:29 Gabapentin (Neurontin) 800 mg PO ONETIME ONE Stop: 05/17/20 22:13 Promethazine HCl 12.5 mg/ (Sodium Chloride) 50.5 mls @ 200 mls/hr IV Q6H PRN PRN Reason: Nausea/Vomiting Metformin HCl (Glucophage) 1,000 mg PO BIDMEALS [facility] Morphine Sulfate (Morphine) 2 mg IVPUSH Q2H PRN PRN Reason: Pain (severe 7-10) Ondansetron HCl (Zofran Odt) 4 mg PO Q8H PRN PRN Reason: Nausea able to take PO Oxycodone HCl (Oxycodone) 10 mg PO Q4H PRN PRN Reason: Pain (moderate 4-6) Warfarin Sodium (Coumadin Sliding Scale) 1 each PO DAILY LIZABETH - Mortality Measure Prognosis:: Good
[2020-05-17] MEDS ORDERED: HYDROmorphone 1 MG/ML Syringe IVPUSH PRN (23:21)
[2020-05-18] MEDS: oxyCODONE 5 MG Tab PO PRN ×4 (02:59→17:09)
[2020-05-18] MEDS ORDERED: metFORMIN 500 MG Tab PO SCH (08:00)
[2020-05-18] MEDS: METFORMIN ER 500MG TAB (PTOM) PO SCH ×2 (11:55→17:09)
[2020-05-18] MEDS ORDERED: Warfarin 2.5 MG Tab PO SCH (13:00)
[2020-05-18] MEDS ORDERED: Warfarin 5 MG Tab (PTOM) PO SCH (13:00)
--- NOTE | 2020-05-18 13:06 | PCM.DCSUM1 ---
Discharge Summary - Hospital Course Brief History: Mr. Mason is a 65-year-old gentleman who was admitted through the emergency department to observation status for further management of acute on chronic low back pain. - Discharge Data Discharge Date: 05/18/20 Discharge Disposition: Home, Self-Care 01 Condition: Stable - Referral to Home Health Primary Care Physician: PCP None - Discharge Diagnosis/Problem(s) (1) Acute exacerbation of chronic low back pain SNOMED Code(s): 921333515 ICD Code: M54.5 - LOW BACK PAIN; G89.29 - OTHER CHRONIC PAIN Status: Acute Priority: High Current Visit: Yes Onset Date: 05/17/20 Problem Details: Will give patient gabapentin 800mg on top of the dilaudid and robaxin given by the ER. Patient also agreeable to having a trigger point injection of his low back paraspinal muscles to help with the pain. Will also have ice packs available to help patient (2) Diabetes mellitus SNOMED Code(s): 72845815 ICD Code: E11.9 - TYPE 2 DIABETES MELLITUS WITHOUT COMPLICATIONS Status: Acute Current Visit: Yes Problem Details: Will continue patient's metformin and check BG Qualifiers: Diabetes mellitus type: type 2 Diabetes mellitus long-term insulin use: without long-term use Diabetes mellitus complication status: without complication Qualified Code(s): E11.9 - Type 2 diabetes mellitus without complications - Patient Summary/Data Consults: Consultations 05/18/20 09:10 PT Evaluation and Treatment [CONS] Routine Please Evaluate and Treat. PT Reason for Consult: Strengthening Pending Discharge: Yes Discharge Disposition: Home Special Instructions: Back pain This query below is only for informational purposes and is not editable. Admission Diagnosis/Problem: Low back pain Hospital Course: Mr. Mason is a 65yo male with PMH of DMII, [employer] warfarin use d/t a PE, and LBP and spinal surgeries due to injuries related to work who presents today for a sudden onset of pain in his L paraspinal muscles after going to [place] to help his son. When he bent over to help with a dryer vent, he felt a twinge in his back and started having immediate pain. He was able to get back in his car with the help of his son and drive home, but was unable to exit the vehicle and called EMS to help. They transported him to the hospital due to his pain. He wishes to be admitted knowing that he is under observation status. He denies any numbness tingling, difficulty with urination or stooling, SOB, NVDC, headaches, changes to Vision or hearing, or other symptoms besides back pain. While hospitalized he was given pain medication as needed as well as medication for nausea. By the following day muscle spasms had improved significantly and he continued to deny new weakness or sensory changes in the lower extremities. He was seen by physical therapy prior to discharge. Activity will be as tolerated and he will resume his usual diabetic diet. Follow-up appointment will be scheduled with his primary care provider within 1 week. - Patient Instructions Diet: Usual Diet as Tolerated Activity: As Tolerated Other/Special Instructions: Please schedule follow-up appointment with primary care provider within 1 week. - Discharge Plan *PRESCRIPTION DRUG MONITORING PROGRAM REVIEWED*: Not Applicable *COPY OF PRESCRIPTION DRUG MONITORING REPORT IN PATIENT SUAD: Not Applicable Home Medications: Home Meds Insulin Glarg,Human.Rec.Analog [Lantus] 35 unit SQ QAM 01/07/14 [History] Omeprazole 20 mg PO DAILY 01/07/14 [History] atorvaSTATin [Lipitor] 20 mg PO DAILY 01/07/14 [History] Warfarin Sliding Scale [Coumadin Sliding Scale] 2.5 - 5 mg PO ASDIRECTED 03/16/20 [History] Insulin Aspart [NovoLOG] 0 - 20 units SUBCUT TIDMEALS 05/17/20 [History] metFORMIN [Glucophage XR] 1,000 mg PO BIDMEALS 05/17/20 [History] Referrals: Handy Parisi MD [Physician] - - Discharge Summary/Plan Comment DC Time >30 min.: No - Patient Data Vitals - Most Recent: Last Vital Signs Temp 97.5 F 05/18/20 10:19 Pulse 84 05/18/20 10:19 Resp 18 05/18/20 10:19 BP 121/80 05/18/20 10:19 Pulse Ox 98 05/18/20 12:58 Weight - Most Recent: 207 lb I&O - Last 24 hours: Intake & Output 05/17/20 05/18/20 05/18/20 22:59 06:59 14:59 Intake Total 860 Output Total 1100 Balance -1100 860 Lab Results - Last 24 hrs: Laboratory Results - last 24 hr 05/17/20 05/18/20 05/18/20 Range/Units 22:45 00:10 07:30 PT 19.5 H (9.5-12.0) sec INR 1.81 H (0.80-1.20) POC Glucose 197 H 148 H (74-106) MG/DL 05/18/20 Range/Units 11:30 PT (9.5-12.0) sec INR (0.80-1.20) POC Glucose 171 H (74-106) MG/DL Med Orders - Current: Current Medications Acetaminophen (Tylenol) 650 mg PO Q4H PRN PRN Reason: Pain (Mild 1-3)/fever Hydromorphone HCl (Dilaudid) 1 mg IVPUSH Q4H PRN PRN Reason: pain Promethazine HCl 12.5 mg/ (Sodium Chloride) 50.5 mls @ 200 mls/hr IV Q6H PRN PRN Reason: Nausea/Vomiting Last Admin: 05/18/20 02:23 Dose: 200 mls/hr Documented by: Morphine Sulfate (Morphine) 2 mg IVPUSH Q2H PRN PRN Reason: Pain (severe 7-10) Last Admin: 05/18/20 02:29 Dose: 2 mg Documented by: Ondansetron HCl (Zofran Odt) 4 mg PO Q8H PRN PRN Reason: Nausea able to take PO Last Admin: 05/17/20 23:50 Dose: 4 mg Documented by: Oxycodone HCl (Oxycodone) 10 mg PO Q4H PRN PRN Reason: Pain (moderate 4-6) Last Admin: 05/18/20 09:17 Dose: 10 mg Documented by: Pantoprazole Sodium (Protonix) 40 mg PO BEDTIME [facility] Metformin Er 500mg (Tab (Ptom)) 0 each PO BIDMEALS [facility] Last Admin: 05/18/20 11:55 Dose: 1,000 each Documented by: Warfarin Sodium (Coumadin) 5 mg PO SuTuTh@1300 [facility] Warfarin Sodium (Coumadin) 2.5 mg PO MoWeFrSa@1300 [facility] Discontinued Medications Bupivacaine HCl (Sensorcaine-Mpf 0.5%) 10 ml INJECT ONETIME ONE Stop: 05/17/20 22:29 Last Admin: 05/17/20 22:49 Dose: 10 ml Documented by: Gabapentin (Neurontin) 800 mg PO ONETIME ONE Stop: 05/17/20 22:13 Last Admin: 05/17/20 23:51 Dose: 800 mg Documented by: Hydromorphone HCl (Dilaudid) 1 mg IVPUSH ONETIME ONE Stop: 05/17/20 21:59 Last Admin: 05/17/20 22:05 Dose: 1 mg Documented by: [facility]) [facility] Last Admin: 05/18/20 12:02 Dose: Not Given Documented by: Methocarbamol (Robaxin) 1,000 mg PO ONETIME ONE Stop: 05/17/20 20:56 Last Admin: 05/17/20 21:18 Dose: 1,000 mg Documented by: Warfarin Sodium (Coumadin) 2.5 mg PO MoWeFrSa@1300 [facility] - Exam Quality Assessment: Reports: DVT Prophylaxis General: Reports: Alert, Oriented, Cooperative, Mild Distress Lungs: Reports: Clear to Auscultation, Normal Respiratory Effort Cardiovascular: Reports: Regular Rate, Regular Rhythm, No Murmurs GI/Abdominal Exam: Soft, Non-Tender, No Organomegaly, No Distention Neurological: Reports: Strength Equal Bilateral
[2020-05-18] MEDS ORDERED: Pantoprazole 40 MG Tab.CR PO SCH (21:00)
[2020-05-19] MEDS: Acetaminophen 325 MG Tab PO PRN ×2 (02:53→09:00)
[2020-05-19] MEDS: METFORMIN ER 500MG TAB (PTOM) PO SCH (08:29)
--- NOTE | 2020-05-19 11:56 | PCM.SN.2 ---
- Free Text/Narrative Note: Mr. Mason was originally planned for discharge yesterday. He was seen for follow-up in the afternoon prior to discharge by physical therapy who felt it would be better to keep him 1 additional day to work on stairs prior to discharge to home. He has been seen by them this morning and has done well enough with ambulation and stairs that he can be discharged home.
[2020-05-19] MEDS ORDERED: Warfarin 5 MG Tab (PTOM) PO SCH (13:00)
[2020-05-19] MEDS: oxyCODONE 5 MG Tab PO PRN (13:33)
--- NOTE | 2020-05-19 15:21 | EDM.PDOC ---
ED HPI GENERAL MEDICAL PROBLEM - General Chief Complaint: Back Pain or Injury Stated Complaint: MEDICAL [facility] Time Seen by Provider: 05/17/20 18:44 Source of Information: Reports: Patient, Family History Limitations: Reports: No Limitations - History of Present Illness INITIAL COMMENTS - FREE TEXT/NARRATIVE: Niko is a 65 year old male presenting via [facility] for evaluation of acute on chronic low back pain. The patient has a past medical history significant for multiple lumbar surgeries including several discectomies, keyhole laminectomies, a posterior fusion with Shay Rods at L4- S1, and an anterior fusion of L5-S1 with a plate after the Shay Rods fractured at this level. He initially started to feel pain when he slipped in the ice 3 days ago causing him to jar his back. 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 He was bent over when he suddenly developed severe pain in his lumbar spine that he reports felt like his back "locked up". He was unable to ambulate and his son drove the car to as close to the patient as possible and helped him into the car. The patient reportedly drove to [employer] from [place] but was having difficulty using the brake and with steering due to the severe low back pain. Once home, he was unable to get out of the car and his called EMS who assisted him onto their stretcher and brought him in for evaluation. The patient received Dilaudid 2mg IV and Versed 1mg IV enroute to the hospital and on arrival was still having severe pain. The patient denies any loss of bowel or bladder control, saddle anesthesia, new onset of weakness or numbness, or any headache. Although he slipped on the ice he reports that he did not fall. Onset: Today, Sudden Location: Reports: Back Quality: Reports: Ache, Stabbing Improves with: Reports: Immobilization Worsens with: Reports: Movement Associated Symptoms: Reports: No Other Symptoms low back Pain Score (Numeric/FACES): 6 - Related Data Allergies Allergy/AdvReac Type Severity Reaction Status Date / Time codeine Allergy Swelling Verified 05/17/20 19:00 Home Meds: Home Meds Insulin Glarg,Human.Rec.Analog [Lantus] 35 unit SQ QAM 01/07/14 [History] Omeprazole 20 mg PO DAILY 01/07/14 [History] atorvaSTATin [Lipitor] 20 mg PO DAILY 01/07/14 [History] Warfarin Sliding Scale [Coumadin Sliding Scale] 2.5 - 5 mg PO ASDIRECTED 03/16/20 [History] Insulin Aspart [NovoLOG] 0 - 20 units SUBCUT TIDMEALS 05/17/20 [History] metFORMIN [Glucophage XR] 1,000 mg PO BIDMEALS 05/17/20 [History] Past Medical History Cardiovascular History: Reports: High Cholesterol Respiratory History: Reports: COPD, PE Gastrointestinal History: Reports: Colon Polyp, GERD Musculoskeletal History: Reports: Back Pain, Chronic Neurological History: Reports: Seizure Endocrine/Metabolic History: Reports: Diabetes, Type II Hematologic History: Reports: Anticoagulation Therapy - Infectious Disease History Infectious Disease History: Reports: Chicken Pox, Measles, Mumps - Past Surgical History GI Surgical History: Reports: Colonoscopy, Hernia, Inguinal Neurological Surgical History: Reports: Discectomy, Lumbar Spine, Spinal Fusion, Other (See Below) Other Neurological Surgeries/Procedures: -Lumbar surgeries (reports in 05/2020 having 6-7 surgeries): CT 05/2020 finds: L4-S1 instrumented fusion with B pedicle screw and héctor fixation, L5-S1 anterior plate and screw fixation, L4-S1 interbody fusion, chronic laminectomy L5-S1. Implantable neurostimulator lumbar spine Social & Family History - Family History Family Medical History: No Pertinent Family History - Tobacco Use Tobacco Use Status *Q: Former Tobacco User Used Tobacco, but Quit: Yes Month/Year Tobacco Last Used: 1999 Second Hand Smoke Exposure: No - Caffeine Use Caffeine Use: Reports: None - Alcohol Use Days Per Week of Alcohol Use: 1 Number of Drinks Per Day: 1 Total Drinks Per Week: 1 - Recreational Drug Use Recreational Drug Use: No ED ROS GENERAL - Review of Systems Review Of Systems: See Below Constitutional: Reports: No Symptoms HEENT: Reports: No Symptoms Respiratory: Reports: No Symptoms Cardiovascular: Reports: No Symptoms GI/Abdominal: Reports: No Symptoms : Reports: No Symptoms Musculoskeletal: Reports: Back Pain Skin: Reports: No Symptoms Neurological: Reports: Difficulty Walking, Weakness Psychiatric: Reports: No Symptoms Hematologic/Lymphatic: Reports: No Symptoms Immunologic: Reports: No Symptoms ED EXAM,LOWER BACK PAIN/INJURY - Physical Exam Exam: See Below Exam Limited By: No Limitations General Appearance: Moderate Distress, Severe Distress Eye Exam: Bilateral Eye: EOMI, PERRL Head: Atraumatic, Normocephalic Neck: Normal Inspection, Supple, Non-Tender, Full Range of Motion Respiratory/Chest: No Respiratory Distress, Lungs Clear, Normal Breath Sounds Cardiovascular: Normal Peripheral Pulses, Regular Rate, Rhythm, No Edema, No Murmur GI/Abdominal: Normal Bowel Sounds, Soft, Non-Tender. No: Guarding, Rigid, Rebound Back Exam: Decreased Range of Motion (significant inability to move to either side or sit up.), Muscle Spasm (left paraspinal spasm in lumbar spine), Paraspinal Tenderness (Left paraspinal tenderness and spasm), Vertebral Tenderness (Lower lumbar), Other (positive leg raise at 10 degrees bilaterally) Extremities: Normal Inspection, Normal Range of Motion, Non-Tender. No: Joint Swelling Neurological: Alert, Normal Mood/Affect, Normal Dorsiflexion, CN II-XII Intact, Normal Plantar Flexion, Oriented x 3, Straight Leg Raise (L) (10 degrees), Straight Leg Raise (R) (10 degrees), Other (symmetric bilateral leg weakness reportedly at baseline according to patient and .). No: Abnormal Sensation, Abnormal Light Touch, Saddle Anesthesia Psychiatric: Normal Affect, Normal Mood Skin Exam: Warm, Dry, Intact, Normal Color Course - Vital Signs Last Recorded V/S: Last Vital Signs Temp 35.8 C L 05/19/20 11:00 Pulse 107 H 05/19/20 11:00 Resp 18 05/19/20 11:00 BP 148/91 H 05/19/20 11:00 Pulse Ox 96 05/19/20 11:00 - Orders/Labs/Meds Orders: Medication Orders Acetaminophen (Tylenol) 650 mg PO Q4H PRN PRN Reason: Pain (Mild 1-3)/fever Last Admin: 05/19/20 09:00 Dose: 650 mg Documented by: Admin: 05/19/20 02:53 Dose: 650 mg Documented by: SONIA Hydromorphone HCl (Dilaudid) 1 mg IVPUSH Q4H PRN PRN Reason: pain Promethazine HCl 12.5 mg/ (Sodium Chloride) 50.5 mls @ 200 mls/hr IV Q6H PRN PRN Reason: Nausea/Vomiting Last Admin: 05/18/20 02:23 Dose: 200 mls/hr Documented by: MAKAYLA Morphine Sulfate (Morphine) 2 mg IVPUSH Q2H PRN PRN Reason: Pain (severe 7-10) Last Admin: 05/18/20 02:29 Dose: 2 mg Documented by: MAKAYLA Ondansetron HCl (Zofran Odt) 4 mg PO Q8H PRN PRN Reason: Nausea able to take PO Last Admin: 05/17/20 23:50 Dose: 4 mg Documented by: MAKAYLA Oxycodone HCl (Oxycodone) 10 mg PO Q4H PRN PRN Reason: Pain (moderate 4-6) Last Admin: 05/19/20 13:33 Dose: 10 mg Documented by: Admin: 05/18/20 17:09 Dose: 10 mg Documented by: Admin: 05/18/20 13:19 Dose: 10 mg Documented by: Admin: 05/18/20 09:17 Dose: 10 mg Documented by: Admin: 05/18/20 02:59 Dose: 10 mg Documented by: MAKAYLA Pantoprazole Sodium (Protonix) 40 mg PO BEDTIME [facility] Last Admin: 05/18/20 20:04 Dose: 40 mg Documented by: SONIA Metformin Er 500mg (Tab (Ptom)) 0 each PO BIDMEALS [facility] Last Admin: 05/19/20 08:29 Dose: 1 each Documented by: Admin: 05/18/20 17:09 Dose: 2 each Documented by: Admin: 05/18/20 11:55 Dose: 1,000 each Documented by: EMILEE Warfarin Sodium (Coumadin) 5 mg PO SuTuTh@1300 [facility] Last Admin: 05/19/20 13:33 Dose: 5 mg Documented by: LEONOR Warfarin Sodium (Coumadin) 2.5 mg PO MoWeFrSa@1300 [facility] Last Admin: 05/18/20 13:22 Dose: 2.5 mg Documented by: EMILEE Meds: Medications Generic Name Dose Route Start Last Admin Trade Name Freq PRN Reason Stop Dose Admin Acetaminophen 650 mg 05/17/20 22:07 05/19/20 09:00 Tylenol PO 650 mg Q4H PRN Administration Pain (Mild 1-3)/fever Hydromorphone HCl 1 mg 05/17/20 23:21 Dilaudid IVPUSH Q4H PRN pain Promethazine HCl 12.5 mg/ 50.5 mls @ 200 mls/hr 05/17/20 22:07 05/18/20 02:23 Sodium Chloride IV 200 mls/hr Q6H PRN Administration Nausea/Vomiting Morphine Sulfate 2 mg 05/17/20 22:07 05/18/20 02:29 Morphine IVPUSH 2 mg Q2H PRN Administration Pain (severe 7-10) Ondansetron HCl 4 mg 05/17/20 22:07 05/17/20 23:50 Zofran Odt PO 4 mg Q8H PRN Administration Nausea able to take PO Oxycodone HCl 10 mg 05/17/20 22:07 05/19/20 13:33 Oxycodone PO 10 mg Q4H PRN Administration Pain (moderate 4-6) Pantoprazole Sodium 40 mg 05/18/20 21:00 05/18/20 20:04 Protonix PO 40 mg BEDTIME [facility] Administration Metformin Er 500mg 0 each 05/18/20 12:00 05/19/20 08:29 Tab (Ptom) PO 1 each BIDMEALS [facility] Administration Warfarin Sodium 5 mg 05/19/20 13:00 05/19/20 13:33 Coumadin PO 5 mg SuTuTh@1300 [facility] Administration Warfarin Sodium 2.5 mg 05/18/20 13:00 05/18/20 13:22 Coumadin PO 2.5 mg MoWeFrSa@1300 [facility] Administration Discontinued Medications Generic Name Dose Route Start Last Admin Trade Name Freq PRN Reason Stop Dose Admin Bupivacaine HCl 10 ml 05/17/20 22:28 05/17/20 22:49 Sensorcaine-Mpf 0.5% INJECT 05/17/20 22:29 10 ml ONETIME ONE Administration Gabapentin 800 mg 05/17/20 22:12 05/17/20 23:51 Neurontin PO 05/17/20 22:13 800 mg ONETIME ONE Administration Hydromorphone HCl 1 mg 05/17/20 21:58 05/17/20 22:05 Dilaudid IVPUSH 05/17/20 21:59 1 mg ONETIME ONE Administration Metformin HCl 1,000 mg 05/18/20 08:00 05/18/20 12:02 Glucophage PO Not Given BIDMEALS [facility] Methocarbamol 1,000 mg 05/17/20 20:55 05/17/20 21:18 Robaxin PO 05/17/20 20:56 1,000 mg ONETIME ONE Administration Warfarin Sodium 2.5 mg 05/18/20 13:00 Coumadin PO Mendoza@1300 [facility] - Radiology Interpretation Free Text/Narrative:: I reviewed the report on the CT Lumbar Spine demonstrating no acute findings. - Re-Assessments/Exams Free Text/Narrative Re-Assessment/Exam: The patient was given additional dilaudid IV and Robaxin 1000mg p.o. without any significant improvement. I believe the patient will need to be admitted for pain control and discussed the case with Dr. Tabares who agrees with the admissio n. Departure - Departure Time of Disposition: 22:20 Disposition: Admitted As Inpatient 65 Clinical Impression: Acute exacerbation of chronic low back pain, Acute lumbar myofascial strain - Discharge Information *PRESCRIPTION DRUG MONITORING PROGRAM REVIEWED*: Not Applicable *COPY OF PRESCRIPTION DRUG MONITORING REPORT IN PATIENT SUAD: Not Applicable Sepsis Event Note (ED) - Evaluation Sepsis Screening Result: No Definite Risk - Problem List & Annotations (1) Acute exacerbation of chronic low back pain SNOMED Code(s): 419451284 Code(s): M54.5 - LOW BACK PAIN; G89.29 - OTHER CHRONIC PAIN Status: Acute Priority: High Current Visit: Yes Onset Date: 05/17/20 Annotation/Comment:: Will give patient gabapentin 800mg on top of the dilaudid and robaxin given by the ER. Patient also agreeable to having a trigger point injection of his low back paraspinal muscles to help with the pain. Will also have ice packs available to help patient (2) Acute lumbar myofascial strain SNOMED Code(s): 417340208, 04765180, 916715461 Code(s): S39.012A - STRAIN OF MUSCLE, FASCIA AND TENDON OF LOWER BACK, INIT Status: Acute Priority: High Current Visit: Yes Onset Date: ~05/17/20 Annotation/Comment:: Will give patient gabapentin 800mg on top of the dilaudid and robaxin given by the ER. Patient also agreeable to having a trigger point injection of his low back paraspinal muscles to help with the pain. Qualifiers: Encounter type: initial encounter Qualified Code(s): S39.012A - Strain of muscle, fascia and tendon of lower back, initial encounter - Problem List Review Problem List Initiated/Reviewed/Updated: Yes
--- NOTE | 2020-05-20 14:37 | PCM.PN ---
- General Info Date of Service: 05/18/20 Subjective Update: Mr. Odom is to experience intermittent low back pain, but much improved from admission. Plan had been for discharged home today, he was seen by physical therapy and they would like to see him again in the morning for reassessment of ambulation as well as to try him on some stairs. Functional Status: Reports: Tolerating Diet, Ambulating, Urinating - Review of Systems Pulmonary: Reports: No Symptoms Cardiovascular: Reports: No Symptoms Gastrointestinal: Reports: No Symptoms Musculoskeletal: Reports: Back Pain - Patient Data Vitals - Most Recent: Last Vital Signs Temp 97.1 F 05/19/20 15:44 Pulse 87 05/19/20 15:44 Resp 16 05/19/20 15:44 BP 116/62 05/19/20 15:44 Pulse Ox 96 05/19/20 15:44 Weight - Most Recent: 207 lb Lab Results Last 24 Hours: Laboratory Results - last 24 hr 05/19/20 Range/Units 16:30 POC Glucose 136 H (74-106) MG/DL Med Orders - Current: Current Medications Discontinued Medications Acetaminophen (Tylenol) 650 mg PO Q4H PRN PRN Reason: Pain (Mild 1-3)/fever Last Admin: 05/19/20 09:00 Dose: 650 mg Documented by: Bupivacaine HCl (Sensorcaine-Mpf 0.5%) 10 ml INJECT ONETIME ONE Stop: 05/17/20 22:29 Last Admin: 05/17/20 22:49 Dose: 10 ml Documented by: Gabapentin (Neurontin) 800 mg PO ONETIME ONE Stop: 05/17/20 22:13 Last Admin: 05/17/20 23:51 Dose: 800 mg Documented by: Hydromorphone HCl (Dilaudid) 1 mg IVPUSH ONETIME ONE Stop: 05/17/20 21:59 Last Admin: 05/17/20 22:05 Dose: 1 mg Documented by: Hydromorphone HCl (Dilaudid) 1 mg IVPUSH Q4H PRN PRN Reason: pain Promethazine HCl 12.5 mg/ (Sodium Chloride) 50.5 mls @ 200 mls/hr IV Q6H PRN PRN Reason: Nausea/Vomiting Last Admin: 05/18/20 02:23 Dose: 200 mls/hr Documented by: Metformin HCl (Glucophage) 1,000 mg PO BIDMEALS COUNTS INCLUDE 234 BEDS AT THE [facility] Last Admin: 05/18/20 12:02 Dose: Not Given Documented by: Methocarbamol (Robaxin) 1,000 mg PO ONETIME ONE Stop: 05/17/20 20:56 Last Admin: 05/17/20 21:18 Dose: 1,000 mg Documented by: Morphine Sulfate (Morphine) 2 mg IVPUSH Q2H PRN PRN Reason: Pain (severe 7-10) Last Admin: 05/18/20 02:29 Dose: 2 mg Documented by: Ondansetron HCl (Zofran Odt) 4 mg PO Q8H PRN PRN Reason: Nausea able to take PO Last Admin: 05/17/20 23:50 Dose: 4 mg Documented by: Oxycodone HCl (Oxycodone) 10 mg PO Q4H PRN PRN Reason: Pain (moderate 4-6) Last Admin: 05/19/20 13:33 Dose: 10 mg Documented by: Pantoprazole Sodium (Protonix) 40 mg PO BEDTIME COUNTS INCLUDE 234 BEDS AT THE [facility] Last Admin: 05/18/20 20:04 Dose: 40 mg Documented by: Metformin Er 500mg (Tab (Ptom)) [facility] Last Admin: 05/19/20 08:29 Dose: 1 each Documented by: Warfarin Sodium (Coumadin) 2.5 mg PO MoWeFrSa@1300 COUNTS INCLUDE 234 BEDS AT THE [facility] Warfarin Sodium (Coumadin) 5 mg PO SuTuTh@1300 COUNTS INCLUDE 234 BEDS AT THE [facility] Last Admin: 05/19/20 13:33 Dose: 5 mg Documented by: Warfarin Sodium (Coumadin) 2.5 mg PO MoWeFrSa@1300 COUNTS INCLUDE 234 BEDS AT THE [facility] Last Admin: 05/18/20 13:22 Dose: 2.5 mg Documented by: - Exam General: Alert, Oriented, Cooperative, Moderate Distress Lungs: Clear to Auscultation, Normal Respiratory Effort Cardiovascular: Regular Rate, Regular Rhythm, No Murmurs GI/Abdominal Exam: Soft, Non-Tender, No Organomegaly, No Distention Neurological: No New Focal Deficit Sepsis Event Note - Evaluation Sepsis Screening Result: No Definite Risk - Problem List & Annotations (1) Acute exacerbation of chronic low back pain SNOMED Code(s): 377144082 Code(s): M54.5 - LOW BACK PAIN; G89.29 - OTHER CHRONIC PAIN Status: Acute Priority: High Onset Date: 05/17/20 Annotation/Comment:: Will give patient gabapentin 800mg on top of the dilaudid and robaxin given by the ER. Patient also agreeable to having a trigger point injection of his low back paraspinal muscles to help with the pain. Will also have ice packs available to help patient (2) Diabetes mellitus SNOMED Code(s): 83946441 Code(s): E11.9 - TYPE 2 DIABETES MELLITUS WITHOUT COMPLICATIONS Status: Acute Qualifiers: Diabetes mellitus type: type 2 Diabetes mellitus buttermaker insulin use: without buttermaker use Diabetes mellitus complication status: without complication Qualified Code(s): E11.9 - Type 2 diabetes mellitus without complications Annotation/Comment:: Will continue patient's metformin and check BG - Problem List Review Problem List Initiated/Reviewed/Updated: Yes - Plan Plan:: ASSESSMENT AND PLAN LOW BACK PAIN-longstanding history of back pain, status post several previous surgical procedures. Acute injury resulting in muscle spasm requiring observation admission. Spasms have improved significantly from admission and he has been seen by physical therapy. Plan will be for 1 additional night of hospitalization followed by physical therapy reassessment in the a.m. Probable discharged home tomorrow.
== END 2020-05-19 17:30 | disposition home or self-care (01) ==
LOC: JP.ED 18:36 → JP.MS 22:07
PROVIDERS: ADMIT Family Medicine; ATTEND Hospitalist
DX: S39.012A Strain of muscle, fascia and tendon of lower back, initial encounter (principal); G89.29 Other chronic pain; E11.9 Type 2 diabetes mellitus without complications; J44.9 Chronic obstructive pulmonary disease, unspecified; K21.9 Gastro-esophageal reflux disease without esophagitis; Z87.891 Personal history of nicotine dependence; Z88.5 Allergy status to narcotic agent
CPT/HCPCS: 36415; 72131; 82962; 85610; 94762; 96365; 96375; 97010; 97110; 97116; 97140; 97162; 97530; 99284; 99285; A9270; G0378; J1170; J2270; J2550; J3490; 96374

== ENCOUNTER 2021-09-14 08:34 | Day surgery (SDC) | payer MEDICARE, OTHER ==
[2021-09-14] MEDS ORDERED: Lactated Ringers 1,000 ML IV SCH ×2 (10:00→10:30)
[2021-09-14] MEDS ORDERED: Dextrose 5%-Lactated Ringers 1,000 ML IV SCH (10:30)
[2021-09-14] MEDS ORDERED: Propofol 200 MG/20 ML SDV ONE (10:51)
[2021-09-14] MEDS ORDERED: fentaNYL 100 MCG/2 ML SDV ONE (10:51)
== END 2021-09-14 12:15 | disposition home or self-care (01) ==
LOC: JP.SDS 08:34
PROVIDERS: ATTEND Family Medicine
DX: Z12.11 Encounter for screening for malignant neoplasm of colon (principal); D12.3 Benign neoplasm of transverse colon; E11.9 Type 2 diabetes mellitus without complications; K21.9 Gastro-esophageal reflux disease without esophagitis; G47.33 Obstructive sleep apnea (adult) (pediatric); J44.9 Chronic obstructive pulmonary disease, unspecified; Z88.8 Allergy status to other drugs, medicaments and biological substances; Z88.5 Allergy status to narcotic agent
CPT/HCPCS: 82947; J2704; J3010; J7120; J7121

== ENCOUNTER 2023-03-26 20:22 | Emergency (ER) | payer MEDICARE, OTHER ==
[2023-03-26] MEDS ORDERED: Naloxone 0.4 MG/ML SDV IVPUSH PRN (21:27)
[2023-03-26] MEDS: HYDROmorphone 1 MG/ML Syringe IM ONE (21:37)
[2023-03-26 22:08] LABS: APPEARANCE,URINE CLEAR (CLEAR); BILIRUBIN,URINE NEGATIVE (NEGATIVE); COLOR,URINE YELLOW (YELLOW); GLUCOSE,URINE 500 mg/dL (NEGATIVE); KETONES,URINE NEGATIVE (NEGATIVE); LEUKOCYTE ESTERASE,URINE NEGATIVE (NEGATIVE); NITRITE,URINE NEGATIVE (NEGATIVE); OCCULT BLOOD,URINE NEGATIVE (NEGATIVE); PROTEIN,URINE TRACE mg/dL (NEGATIVE)
[2023-03-26 22:14] LABS: RBC,URINE 0-5 (0-5); WBC,URINE 0-5 (0-5)
[2023-03-26 22:15] LABS: AMORPHOUS SEDIMENT,URINE NOT SEEN; BACTERIA,URINE NOT SEEN; EPITHELIAL CELLS,URINE RARE; MUCUS,URINE NOT SEEN
[2023-03-26 22:15] LABS: BASOPHILS ABSOLUTE AUTO 0.05 K/uL (0.00-0.10); BASOPHILS PERCENT AUTO 0.6 % (0.1-1.3); EOSINOPHILS ABSOLUTE AUTO 0.06 K/uL (0.00-0.40); EOSINOPHILS PERCENT AUTO 0.7 % (0.0-5.4); IMMATURE GRAN ABSOLUTE AUTO 0.03 K/uL (0.00-0.23); IMMATURE GRAN PERCENT AUTO 0.4 % (0.0-0.7); LYMPHOCYTES PERCENT AUTO 15.5 % (11.4-47.7); MEAN CORPUSCULAR HEMOGLOBIN 30.2 pg (31.6-35.5); MEAN CORPUSCULAR HGB CONC 34.1 g/dL (31.6-35.5); MEAN CORPUSCULAR VOLUME 88.4 fL (81.4-99.0); MONOCYTES ABSOLUTE AUTO 0.38 K/uL (0.20-0.90); MONOCYTES PERCENT AUTO 4.5 % (3.3-12.6); NEUTROPHILS ABSOLUTE AUTO 6.57 K/uL (1.0-7.6); NEUTROPHILS PERCENT AUTO 78.3 % (40.0-78.1); PLATELET COUNT,PLT 218 K/uL (130-375); RED BLOOD CELL COUNT 4.64 M/uL (4.14-5.76); WHITE BLOOD CELL COUNT,WBC 8.4 K/uL (3.2-11.0)
[2023-03-26 22:30] LABS: CALCIUM 8.4 mg/dL (8.5-10.1); CREATININE 1.3 mg/dL (0.8-1.3); EST CRCL DRUG DOSING (CG) 63.23 mL/min; POTASSIUM,K 3.9 mmol/L (3.6-5.2)
[2023-03-26 22:33] LABS: ANION GAP 12.9 mmol/L (5.0-14.0)
== END 2023-03-26 23:45 | disposition home or self-care (01) ==
LOC: JP.ED 20:22
DX: M54.50 Low back pain, unspecified (principal); G89.29 Other chronic pain; E78.00 Pure hypercholesterolemia, unspecified; J44.9 Chronic obstructive pulmonary disease, unspecified; E11.9 Type 2 diabetes mellitus without complications; Z87.891 Personal history of nicotine dependence; Z79.899 Other long term (current) drug therapy; Z79.01 Long term (current) use of anticoagulants; Z79.4 Long term (current) use of insulin; Z88.5 Allergy status to narcotic agent
CPT/HCPCS: 36415; 74176; 80048; 81001; 85025; 96372; 99284; J1170

== ENCOUNTER 2023-06-02 19:16 | Emergency (ER) | payer MEDICARE, OTHER ==
[2023-06-02 20:26] LABS: BASOPHILS ABSOLUTE AUTO 0.09 K/uL (0.00-0.10); BASOPHILS PERCENT AUTO 1.3 % (0.1-1.3); EOSINOPHILS ABSOLUTE AUTO 0.22 K/uL (0.00-0.40); EOSINOPHILS PERCENT AUTO 3.3 % (0.0-5.4); HEMOGLOBIN 13.3 g/dL (12.9-16.9); IMMATURE GRAN PERCENT AUTO 0.3 % (0.0-0.7); MEAN CORPUSCULAR HEMOGLOBIN 29.8 pg (31.6-35.5); MEAN CORPUSCULAR HGB CONC 33.3 g/dL (31.6-35.5); MEAN CORPUSCULAR VOLUME 89.7 fL (81.4-99.0); MONOCYTES ABSOLUTE AUTO 0.57 K/uL (0.20-0.90); MONOCYTES PERCENT AUTO 8.4 % (3.3-12.6); NEUTROPHILS ABSOLUTE AUTO 3.36 K/uL (1.0-7.6); NEUTROPHILS PERCENT AUTO 49.7 % (40.0-78.1); PLATELET COUNT,PLT 248 K/uL (130-375); RED BLOOD CELL COUNT 4.46 M/uL (4.14-5.76); WHITE BLOOD CELL COUNT,WBC 6.8 K/uL (3.2-11.0)
[2023-06-02 20:28] LABS: IMMATURE GRAN ABSOLUTE AUTO 0.02 K/uL (0.00-0.23)
[2023-06-02 20:47] LABS: INR 2.6; PROTHROMBIN TIME 25.2 sec (9.2-10.6)
[2023-06-02 20:50] LABS: A/G RATIO 0.6 (1.2-2.2); ALANINE AMINOTRANSFERASE,ALT 17 U/L (12-78); ALBUMIN 2.8 g/dL (3.4-5.0); ALKALINE PHOSPHATASE 65 U/L (46-116); ASPARTATE AMNIOTRANSFERASE,AST 16 U/L (15-37); BILIRUBIN TOTAL 0.5 mg/dL (0.2-1.0); BLOOD UREA NITROGEN,BUN 18 mg/dL (7-18); CALCIUM 8.4 mg/dL (8.5-10.1); CARBON DIOXIDE,CO2 29 mmol/L (21-32); CHLORIDE,CL 99 mmol/L (100-108); CREATININE 1.5 mg/dL (0.8-1.3); EST CRCL DRUG DOSING (CG) 54.04 mL/min; ESTIMATED GFR 50 mL/min (>60); GLUCOSE RANDOM 195 mg/dL (74-106); PROTEIN TOTAL,TP 7.8 g/dL (6.4-8.2); SODIUM,NA 136 mmol/L (140-148); TROPONIN I HIGH SENSITIVITY 7.1 pg/mL (<=60.3)
[2023-06-02 21:03] LABS: CORONAVIRUS COVID-19 NAA NEGATIVE (NEGATIVE); INFLUENZA A NAA NEGATIVE (NEGATIVE); INFLUENZA B NAA NEGATIVE (NEGATIVE); RESPIRATORY SYNCYTIAL VIR NAA NEGATIVE (NEGATIVE)
== END 2023-06-03 00:30 | disposition home or self-care (01) ==
LOC: JP.ED 19:16
DX: J44.9 Chronic obstructive pulmonary disease, unspecified (principal); E78.00 Pure hypercholesterolemia, unspecified; K21.9 Gastro-esophageal reflux disease without esophagitis; E11.9 Type 2 diabetes mellitus without complications; Z79.01 Long term (current) use of anticoagulants; Z79.899 Other long term (current) drug therapy; Z79.4 Long term (current) use of insulin; Z88.5 Allergy status to narcotic agent; R06.02 Shortness of breath
CPT/HCPCS: 0241U; 36415; 71046; 80053; 83605; 83880; 84145; 84484; 85025; 85379; 85610; 99285

== ENCOUNTER 2023-06-26 11:03 | Emergency (ER) | payer MEDICARE, OTHER ==
[2023-06-26 11:24] LABS: BASOPHILS ABSOLUTE AUTO 0.09 K/uL (0.00-0.10); BASOPHILS PERCENT AUTO 1.6 % (0.1-1.3); EOSINOPHILS ABSOLUTE AUTO 0.21 K/uL (0.00-0.40); EOSINOPHILS PERCENT AUTO 3.8 % (0.0-5.4); HEMATOCRIT 39.3 % (38.4-49.7); HEMOGLOBIN 13.1 g/dL (12.9-16.9); IMMATURE GRAN PERCENT AUTO 0.2 % (0.0-0.7); LYMPHOCYTES ABSOLUTE AUTO 1.68 K/uL (0.8-3.3); LYMPHOCYTES PERCENT AUTO 30.8 % (11.4-47.7); MEAN CORPUSCULAR HEMOGLOBIN 29.9 pg (31.6-35.5); MEAN CORPUSCULAR HGB CONC 33.3 g/dL (31.6-35.5); MEAN CORPUSCULAR VOLUME 89.7 fL (81.4-99.0); MONOCYTES PERCENT AUTO 7.3 % (3.3-12.6); NEUTROPHILS ABSOLUTE AUTO 3.07 K/uL (1.0-7.6); NEUTROPHILS PERCENT AUTO 56.3 % (40.0-78.1); PLATELET COUNT,PLT 219 K/uL (130-375); RED BLOOD CELL COUNT 4.38 M/uL (4.14-5.76); WHITE BLOOD CELL COUNT,WBC 5.5 K/uL (3.2-11.0)
[2023-06-26 11:26] LABS: IMMATURE GRAN ABSOLUTE AUTO 0.01 K/uL (0.00-0.23)
[2023-06-26 11:42] LABS: BASE EXCESS ARTERIAL -0.3 mm/L; BICARBONATE,ARTERIAL 23.6 mmol/L (22.0-26.0); CARBOXYHEMOGLOBIN 1.6 % (0.0-1.6); METHEMOGLOBIN 0.8 %; O2 SATURATION ARTERIAL 98.4 % (95.0-98.0); PCO2 ARTERIAL 38.1 mmHg (35.0-42.0); TOTAL HEMOGLOBIN 13.5 g/dL (13.5-18.0)
[2023-06-26] MEDS: Sodium Chloride 0.9% 500 ML IV ONE ×2 (11:49→13:05)
[2023-06-26 11:53] LABS: CORONAVIRUS COVID-19 NAA NEGATIVE (NEGATIVE); INFLUENZA A NAA NEGATIVE (NEGATIVE); INFLUENZA B NAA NEGATIVE (NEGATIVE); RESPIRATORY SYNCYTIAL VIR NAA NEGATIVE (NEGATIVE)
[2023-06-26] MEDS: Sodium Chloride 0.9% 10 ML Syringe FLUSH PRN (11:53)
[2023-06-26 11:55] LABS: ANION GAP 12.3 mmol/L (5.0-14.0); BLOOD UREA NITROGEN,BUN 12 mg/dL (7-18); CALCIUM 8.7 mg/dL (8.5-10.1); CARBON DIOXIDE,CO2 28 mmol/L (21-32); CHLORIDE,CL 100 mmol/L (100-108); CREATININE 1.4 mg/dL (0.8-1.3); ESTIMATED GFR 54 mL/min (>60); GLUCOSE RANDOM 239 mg/dL (74-106); POTASSIUM,K 4.3 mmol/L (3.6-5.2); PRO B-TYPE NATRIUR PEPT,BNPPRO 238 pg/mL (5-125); SODIUM,NA 136 mmol/L (140-148); TROPONIN I HIGH SENSITIVITY 7.9 pg/mL (<=60.3)
[2023-06-26 12:01] LABS: INR 1.8; PROTHROMBIN TIME 17.4 sec (9.2-10.6)
== END 2023-06-26 14:42 | disposition home or self-care (01) ==
LOC: JP.ED 11:03
DX: R55 Syncope and collapse (principal); E86.0 Dehydration; G47.33 Obstructive sleep apnea (adult) (pediatric); J43.9 Emphysema, unspecified; E11.9 Type 2 diabetes mellitus without complications; K21.9 Gastro-esophageal reflux disease without esophagitis; E78.00 Pure hypercholesterolemia, unspecified; Z88.5 Allergy status to narcotic agent; Z79.899 Other long term (current) drug therapy; Z79.01 Long term (current) use of anticoagulants; Z79.4 Long term (current) use of insulin; Z79.51 Long term (current) use of inhaled steroids; Z79.84 Long term (current) use of oral hypoglycemic drugs; Z99.89 Dependence on other enabling machines and devices; Z99.81 Dependence on supplemental oxygen
CPT/HCPCS: 0241U; 36415; 36600; 71045; 80048; 82803; 83605; 83880; 84145; 84484; 85025; 85379; 85610; 93005; 96360; 99285; J3490; J7040

== ENCOUNTER 2024-02-21 10:47 | Emergency (ER) | payer MEDICARE, OTHER ==
[2024-02-21] MEDS ORDERED: Sodium Chloride 0.9% 10 ML Syringe FLUSH PRN (11:18)
[2024-02-21] MEDS ORDERED: Sodium Chloride 0.9% 1,000 ML IV SCH (11:30)
[2024-02-21] MEDS ORDERED: cefTRIAXone 2 GM in Sodium Chloride 0.9% 50 ML IV ONE (11:30)
[2024-02-21 11:37] LABS: BASOPHILS PERCENT AUTO 1.6 % (0.1-1.3); EOSINOPHILS ABSOLUTE AUTO 0.11 K/uL (0.00-0.40); EOSINOPHILS PERCENT AUTO 1.8 % (0.0-5.4); HEMATOCRIT 44.5 % (38.4-49.7); HEMOGLOBIN 15.3 g/dL (12.9-16.9); IMMATURE GRAN PERCENT AUTO 0.3 % (0.0-0.7); LYMPHOCYTES ABSOLUTE AUTO 1.72 K/uL (0.8-3.3); LYMPHOCYTES PERCENT AUTO 28.1 % (11.4-47.7); MEAN CORPUSCULAR HGB CONC 34.4 g/dL (31.6-35.5); MEAN CORPUSCULAR VOLUME 90.1 fL (81.4-99.0); MONOCYTES ABSOLUTE AUTO 0.53 K/uL (0.20-0.90); MONOCYTES PERCENT AUTO 8.7 % (3.3-12.6); NEUTROPHILS ABSOLUTE AUTO 3.64 K/uL (1.0-7.6); NEUTROPHILS PERCENT AUTO 59.5 % (40.0-78.1); PLATELET COUNT,PLT 266 K/uL (130-375); RED BLOOD CELL COUNT 4.94 M/uL (4.14-5.76); WHITE BLOOD CELL COUNT,WBC 6.1 K/uL (3.2-11.0)
[2024-02-21 11:39] LABS: IMMATURE GRAN ABSOLUTE AUTO 0.02 K/uL (0.00-0.23)
[2024-02-21] MEDS: Sodium Chloride 0.9% 500 ML IV ONE ×2 (11:49→12:45)
[2024-02-21] MEDS: methylPREDNISolone Sodium Succinate 125 MG/2 ML SDV IVPUSH ONE (11:50)
[2024-02-21] MEDS: Albuterol/Ipratropium 3.0-0.5 MG/3 ML Neb Soln NEB ONE (11:50)
[2024-02-21] MEDS: cefTRIAXone 2 GM in Sodium Chloride 0.9% 50 ML IV ONE (11:51)
[2024-02-21 11:56] LABS: INR 1.9; PROTHROMBIN TIME 19.3 sec (9.2-10.6)
[2024-02-21 12:00] LABS: ANION GAP 9.6 mmol/L (5.0-14.0); BLOOD UREA NITROGEN,BUN 10 mg/dL (7-18); CALCIUM 9.3 mg/dL (8.5-10.1); CARBON DIOXIDE,CO2 28 mmol/L (21-32); CHLORIDE,CL 102 mmol/L (100-108); CREATININE 1.5 mg/dL (0.8-1.3); EST CRCL DRUG DOSING (CG) 54.04 mL/min; ESTIMATED GFR 50 mL/min (>60); GLUCOSE RANDOM 108 mg/dL (74-106); SODIUM,NA 140 mmol/L (140-148); TROPONIN I HIGH SENSITIVITY 5.5 pg/mL (<=60.3)
[2024-02-21 12:03] LABS: C-REACTIVE PROTEIN < 0.50 mg/dL (<0.50)
[2024-02-21 12:05] LABS: LACTIC ACID 2.7 mmol/L (0.4-2.0)
[2024-02-21 12:49] LABS: CORONAVIRUS COVID-19 NAA NEGATIVE (NEGATIVE); INFLUENZA A NAA NEGATIVE (NEGATIVE); INFLUENZA B NAA NEGATIVE (NEGATIVE); RESPIRATORY SYNCYTIAL VIR NAA NEGATIVE (NEGATIVE)
== END 2024-02-21 17:26 | disposition home or self-care (01) ==
LOC: JP.ED 10:47
DX: J84.9 Interstitial pulmonary disease, unspecified (principal); J44.1 Chronic obstructive pulmonary disease with (acute) exacerbation; I25.10 Atherosclerotic heart disease of native coronary artery without angina pectoris; E78.00 Pure hypercholesterolemia, unspecified; E11.9 Type 2 diabetes mellitus without complications; Z88.8 Allergy status to other drugs, medicaments and biological substances; Z79.4 Long term (current) use of insulin; Z79.01 Long term (current) use of anticoagulants; Z79.899 Other long term (current) drug therapy; Z86.16 Personal history of COVID-19; Z87.891 Personal history of nicotine dependence
CPT/HCPCS: 0241U; 36415; 71046; 71250; 80048; 83605; 84145; 84484; 85025; 85379; 85610; 86140; 87040; 93005; 93010; 94640; 96361; 96365; 96375; 99284; 99285; J0696; J2919; J3490; J7040; J7620

== ENCOUNTER 2024-04-04 16:47 | Emergency (ER) | payer MEDICARE, OTHER ==
[2024-04-04] MEDS: Albuterol/Ipratropium 3.0-0.5 MG/3 ML Neb Soln NEB ONE (17:04)
[2024-04-04] MEDS: methylPREDNISolone Sodium Succinate 125 MG/2 ML SDV IVPUSH ONE (17:04)
[2024-04-04 17:05] LABS: BASOPHILS ABSOLUTE AUTO 0.13 K/uL (0.00-0.10); BASOPHILS PERCENT AUTO 1.5 % (0.1-1.3); EOSINOPHILS ABSOLUTE AUTO 0.26 K/uL (0.00-0.40); HEMATOCRIT 44.1 % (38.4-49.7); HEMOGLOBIN 15.1 g/dL (12.9-16.9); IMMATURE GRAN PERCENT AUTO 0.2 % (0.0-0.7); LYMPHOCYTES ABSOLUTE AUTO 3.18 K/uL (0.8-3.3); LYMPHOCYTES PERCENT AUTO 36.1 % (11.4-47.7); MEAN CORPUSCULAR HEMOGLOBIN 30.6 pg (31.6-35.5); MEAN CORPUSCULAR HGB CONC 34.2 g/dL (31.6-35.5); MEAN CORPUSCULAR VOLUME 89.3 fL (81.4-99.0); MONOCYTES ABSOLUTE AUTO 0.68 K/uL (0.20-0.90); MONOCYTES PERCENT AUTO 7.7 % (3.3-12.6); NEUTROPHILS ABSOLUTE AUTO 4.53 K/uL (1.0-7.6); NEUTROPHILS PERCENT AUTO 51.5 % (40.0-78.1); PLATELET COUNT,PLT 264 K/uL (130-375); RED BLOOD CELL COUNT 4.94 M/uL (4.14-5.76); WHITE BLOOD CELL COUNT,WBC 8.8 K/uL (3.2-11.0)
[2024-04-04 17:06] LABS: BASE EXCESS VENOUS 2.4 mm/L; METHEMOGLOBIN 0.8 %; O2 SATURATION VENOUS 59.4; OXYHEMOGLOBIN 57.7 %; PCO2 VENOUS 38.5 mm/Hg; PH,VENOUS 7.444 (7.350-7.450); TOTAL HEMOGLOBIN 15.5 g/dL (13.5-18.0)
[2024-04-04 17:09] LABS: IMMATURE GRAN ABSOLUTE AUTO 0.02 K/uL (0.00-0.23); PO2 VENOUS 30.2 mm/Hg
[2024-04-04 17:26] LABS: INR 1.9; PROTHROMBIN TIME 19.4 sec (9.2-10.6)
[2024-04-04 17:27] LABS: ANION GAP 14.8 mmol/L (5.0-14.0); BLOOD UREA NITROGEN,BUN 10 mg/dL (7-18); CALCIUM 9.4 mg/dL (8.5-10.1); CARBON DIOXIDE,CO2 26 mmol/L (21-32); CHLORIDE,CL 100 mmol/L (100-108); CREATININE 1.3 mg/dL (0.8-1.3); ESTIMATED GFR 59 mL/min (>60); GLUCOSE RANDOM 119 mg/dL (74-106); POTASSIUM,K 3.8 mmol/L (3.6-5.2); SODIUM,NA 137 mmol/L (140-148)
[2024-04-04] MEDS: Sodium Chloride 0.9% 1,000 ML IV ONE (17:48)
[2024-04-04 17:55] LABS: CORONAVIRUS COVID-19 NAA NEGATIVE (NEGATIVE); INFLUENZA A NAA NEGATIVE (NEGATIVE); INFLUENZA B NAA NEGATIVE (NEGATIVE); RESPIRATORY SYNCYTIAL VIR NAA NEGATIVE (NEGATIVE)
== END 2024-04-04 18:52 | disposition home or self-care (01) ==
LOC: JP.ED 16:47
DX: J44.9 Chronic obstructive pulmonary disease, unspecified (principal); I25.10 Atherosclerotic heart disease of native coronary artery without angina pectoris; E78.00 Pure hypercholesterolemia, unspecified; E11.9 Type 2 diabetes mellitus without complications; Z86.16 Personal history of COVID-19; Z87.891 Personal history of nicotine dependence; Z79.899 Other long term (current) drug therapy; Z79.01 Long term (current) use of anticoagulants; Z79.4 Long term (current) use of insulin; Z79.51 Long term (current) use of inhaled steroids; Z88.5 Allergy status to narcotic agent
CPT/HCPCS: 0241U; 36415; 71046; 80048; 82803; 83605; 84145; 85025; 85610; 86140; 93005; 94640; 96361; 96374; 99285; J2919; J7030; 93010; 99284; J7620

== ENCOUNTER 2024-10-26 22:41 | Inpatient (IN) | payer MEDICARE, OTHER ==
[2024-10-26 23:10] LABS: BASOPHILS PERCENT AUTO 0.2 % (0.1-1.3); EOSINOPHILS ABSOLUTE AUTO 0.03 K/uL (0.00-0.40); EOSINOPHILS PERCENT AUTO 0.5 % (0.0-5.4); IMMATURE GRAN PERCENT AUTO 0.3 % (0.0-0.7); LYMPHOCYTES ABSOLUTE AUTO 0.56 K/uL (0.8-3.3); LYMPHOCYTES PERCENT AUTO 9.7 % (11.4-47.7); MONOCYTES ABSOLUTE AUTO 0.09 K/uL (0.20-0.90); MONOCYTES PERCENT AUTO 1.6 % (3.3-12.6); NEUTROPHILS ABSOLUTE AUTO 5.05 K/uL (1.0-7.6); NEUTROPHILS PERCENT AUTO 87.7 % (40.0-78.1); PLATELET COUNT,PLT 277 K/uL (130-375); RED BLOOD CELL COUNT 4.16 M/uL (4.14-5.76); WHITE BLOOD CELL COUNT,WBC 5.8 K/uL (3.2-11.0)
[2024-10-26 23:11] LABS: BASOPHILS ABSOLUTE AUTO 0.01 K/uL (0.00-0.10); IMMATURE GRAN ABSOLUTE AUTO 0.02 K/uL (0.00-0.23)
[2024-10-26 23:33] LABS: INR 1.4
[2024-10-26 23:39] LABS: BLOOD UREA NITROGEN,BUN 18.0 mg/dL (7-18); CARBON DIOXIDE,CO2 22.0 mmol/L (21-32); CHLORIDE,CL 99.0 mmol/L (100-108); CREATININE 1.6 mg/dL (0.8-1.3); EST CRCL DRUG DOSING (CG) 49.95 mL/min; ESTIMATED GFR 46.0 mL/min (>60); POTASSIUM,K 4.2 mmol/L (3.6-5.2); PRO B-TYPE NATRIUR PEPT,BNPPRO 266.0 pg/mL (5-125); SODIUM,NA 135.0 mmol/L (140-148)
[2024-10-26 23:41] LABS: GLUCOSE RANDOM 425.0 mg/dL (74-106)
[2024-10-27] MEDS ORDERED: 50% Dextrose in Water 50 ML Syringe IVPUSH PRN ×2 (00:09→02:58)
[2024-10-27] MEDS: Sodium Chloride 0.9% 10 ML Syringe FLUSH PRN (01:27)
[2024-10-27] MEDS: Iopamidol 755 Mg/ML 100 ML Bottle IV SCH (01:27)
[2024-10-27] MEDS: Insulin Regular, Human 100 Units/ML 10 ML Vial SUBCUT ONE (01:32)
[2024-10-27] MEDS ORDERED: Insulin Lispro 100 Unit/ML 3 ML KwikPen SUBCUT SCH (02:58)
[2024-10-27] MEDS ORDERED: Warfarin Sliding Scale PO SCH (02:58)
[2024-10-27 05:58] LABS: BASOPHILS PERCENT AUTO 0.2 % (0.1-1.3); EOSINOPHILS PERCENT AUTO 0.1 % (0.0-5.4); IMMATURE GRAN ABSOLUTE AUTO 0.03 K/uL (0.00-0.23); IMMATURE GRAN PERCENT AUTO 0.3 % (0.0-0.7); LYMPHOCYTES ABSOLUTE AUTO 0.92 K/uL (0.8-3.3); LYMPHOCYTES PERCENT AUTO 10.3 % (11.4-47.7); MONOCYTES ABSOLUTE AUTO 0.56 K/uL (0.20-0.90); MONOCYTES PERCENT AUTO 6.3 % (3.3-12.6); NEUTROPHILS ABSOLUTE AUTO 7.40 K/uL (1.0-7.6); NEUTROPHILS PERCENT AUTO 82.8 % (40.0-78.1); PLATELET COUNT,PLT 253 K/uL (130-375); RED BLOOD CELL COUNT 3.95 M/uL (4.14-5.76); WHITE BLOOD CELL COUNT,WBC 8.9 K/uL (3.2-11.0)
[2024-10-27 06:05] LABS: BASOPHILS ABSOLUTE AUTO 0.02 K/uL (0.00-0.10); EOSINOPHILS ABSOLUTE AUTO 0.01 K/uL (0.00-0.40)
[2024-10-27 06:11] LABS: BLOOD UREA NITROGEN,BUN 15.0 mg/dL (7-18); CARBON DIOXIDE,CO2 25.0 mmol/L (21-32); CHLORIDE,CL 104.0 mmol/L (100-108); CREATININE 1.2 mg/dL (0.8-1.3); EST CRCL DRUG DOSING (CG) 66.6 mL/min; ESTIMATED GFR 65.0 mL/min (>60); GLUCOSE RANDOM 217.0 mg/dL (74-106); POTASSIUM,K 4.8 mmol/L (3.6-5.2); SODIUM,NA 138.0 mmol/L (140-148)
[2024-10-27] MEDS: Budesonide 0.5 MG/2 ML Neb Susp INH SCH (07:55)
[2024-10-27] MEDS: Arformoterol 15 MCG/2 ML Neb Soln INH SCH (07:59)
[2024-10-27] MEDS: Insulin Lispro 100 Unit/ML 3 ML KwikPen SUBCUT SCH (08:57)
[2024-10-27] MEDS: Cholecalciferol (Vitamin D3) 25 MCG Tab PO SCH (09:06)
[2024-10-27] MEDS: Cyanocobalamin (Vitamin B12) 1,000 MCG Tab PO SCH (09:06)
[2024-10-27] MEDS: Buprenorphine/Naloxone 8-2 MG Tab.SL SL SCH (09:06)
[2024-10-27] MEDS: Fluticasone NASAL Spray 16 GM Bottle NASBOTH SCH (10:37)
[2024-10-27] MEDS: Insulin Glargine,Human Rec. Analog 100 Units/ML 3 ML Pen SUBCUT SCH ×2 (12:31→21:03)
[2024-10-27 20:16] LABS: INR 2.3
[2024-10-27] MEDS ORDERED: Insulin Glargine,Human Rec. Analog 100 Units/ML 3 ML Pen SUBCUT SCH (21:00)
[2024-10-28 06:01] LABS: BASOPHILS ABSOLUTE AUTO 0.05 K/uL (0.00-0.10); BASOPHILS PERCENT AUTO 0.6 % (0.1-1.3); EOSINOPHILS ABSOLUTE AUTO 0.05 K/uL (0.00-0.40); EOSINOPHILS PERCENT AUTO 0.6 % (0.0-5.4); IMMATURE GRAN ABSOLUTE AUTO 0.12 K/uL (0.00-0.23); IMMATURE GRAN PERCENT AUTO 1.5 % (0.0-0.7); LYMPHOCYTES ABSOLUTE AUTO 1.67 K/uL (0.8-3.3); LYMPHOCYTES PERCENT AUTO 21.0 % (11.4-47.7); MONOCYTES ABSOLUTE AUTO 0.44 K/uL (0.20-0.90); MONOCYTES PERCENT AUTO 5.5 % (3.3-12.6); NEUTROPHILS ABSOLUTE AUTO 5.64 K/uL (1.0-7.6); NEUTROPHILS PERCENT AUTO 70.8 % (40.0-78.1); PLATELET COUNT,PLT 254 K/uL (130-375); RED BLOOD CELL COUNT 3.64 M/uL (4.14-5.76); WHITE BLOOD CELL COUNT,WBC 8.0 K/uL (3.2-11.0)
[2024-10-28 06:15] LABS: BLOOD UREA NITROGEN,BUN 19.0 mg/dL (7-18); CARBON DIOXIDE,CO2 26.0 mmol/L (21-32); CHLORIDE,CL 103.0 mmol/L (100-108); CREATININE 1.1 mg/dL (0.8-1.3); EST CRCL DRUG DOSING (CG) 72.65 mL/min; ESTIMATED GFR 72.0 mL/min (>60); GLUCOSE RANDOM 161.0 mg/dL (74-106); INR 2.9; POTASSIUM,K 4.1 mmol/L (3.6-5.2); SODIUM,NA 139.0 mmol/L (140-148)
[2024-10-28 16:39] LABS: PLATELET COUNT,PLT 258.0 K/uL (130-375); RED BLOOD CELL COUNT 3.87 M/uL (4.14-5.76); WHITE BLOOD CELL COUNT,WBC 9.0 K/uL (3.2-11.0)
[2024-10-28 17:03] LABS: BLOOD UREA NITROGEN,BUN 21.0 mg/dL (7-18); CARBON DIOXIDE,CO2 28.0 mmol/L (21-32); CHLORIDE,CL 100.0 mmol/L (100-108); CREATININE 1.3 mg/dL (0.8-1.3); EST CRCL DRUG DOSING (CG) 61.47 mL/min; ESTIMATED GFR 59.0 mL/min (>60); GLUCOSE RANDOM 177.0 mg/dL (74-106); POTASSIUM,K 4.5 mmol/L (3.6-5.2); SODIUM,NA 136.0 mmol/L (140-148); TROPONIN I HIGH SENSITIVITY 5.4 pg/mL (<=60.3)
[2024-10-29 06:13] LABS: INR 3.5
[2024-10-29] MEDS ORDERED: Sodium Chloride 0.9% 10 ML Syringe IV PRN (08:41)
[2024-10-29] MEDS: Arformoterol 15 MCG/2 ML Neb Soln INH SCH (20:49)
[2024-10-29 21:28] LABS: PLATELET COUNT,PLT 296.0 K/uL (130-375); RED BLOOD CELL COUNT 4.28 M/uL (4.14-5.76); WHITE BLOOD CELL COUNT,WBC 9.8 K/uL (3.2-11.0)
[2024-10-29 21:56] LABS: PRO B-TYPE NATRIUR PEPT,BNPPRO 1057 pg/mL (5-125)
[2024-10-29 22:12] LABS: A/G RATIO 0.6 (1.2-2.2); ALANINE AMINOTRANSFERASE,ALT 20 U/L (12-78); ASPARTATE AMNIOTRANSFERASE,AST 25 U/L (15-37); BILIRUBIN TOTAL 0.8 mg/dL (0.2-1.0); BLOOD UREA NITROGEN,BUN 23 mg/dL (7-18); CARBON DIOXIDE,CO2 28 mmol/L (21-32); CHLORIDE,CL 99 mmol/L (100-108); CREATININE 1.3 mg/dL (0.8-1.3); EST CRCL DRUG DOSING (CG) 61.47 mL/min; ESTIMATED GFR 59 mL/min (>60); GLUCOSE RANDOM 161 mg/dL (74-106); POTASSIUM,K 3.5 mmol/L (3.6-5.2); PROTEIN TOTAL,TP 8.4 g/dL (6.4-8.2); SODIUM,NA 137 mmol/L (140-148)
[2024-10-29] MEDS: Potassium Chloride 20 MEQ Tab.ER PO ONE (22:50)
[2024-10-29] MEDS: Furosemide 20 MG/2 ML VIAL IVPUSH ONE (22:50)
[2024-10-30] MEDS: Sodium Chloride 0.9% 10 ML Syringe FLUSH ONE (00:19)
[2024-10-30] MEDS: Iopamidol 755 Mg/ML 100 ML Bottle IV SCH (00:19)
[2024-10-30 01:08] LABS: BASE EXCESS ARTERIAL 2.2 mm/L; BICARBONATE,ARTERIAL 27.6 mmol/L (22.0-26.0); O2 SATURATION ARTERIAL 87.5 % (95.0-98.0); OXYHEMOGLOBIN 85.0 %; PCO2 ARTERIAL 48.3 mmHg (35.0-42.0); PO2 ARTERIAL 57.0 mmHg (75.0-100.0); TOTAL HEMOGLOBIN 12.5 g/dL (13.5-18.0)
[2024-10-30] MEDS ORDERED: Ondansetron 4 MG/2 ML SDV IVPUSH PRN (04:33)
[2024-10-30] MEDS ORDERED: Ondansetron 4 MG Tab.DIS PO PRN (04:33)
[2024-10-30] MEDS: LORazepam 2 MG/ML SDV IVPUSH ONE (04:38)
[2024-10-30 05:21] LABS: INR 2.4
[2024-10-30] MEDS: Albuterol 0.083% 2.5 MG/3 ML Neb Soln NEB PRN (05:42)
[2024-10-30 05:47] LABS: BASE EXCESS ARTERIAL -0.2 mm/L; BICARBONATE,ARTERIAL 27.5 mmol/L (22.0-26.0); O2 SATURATION ARTERIAL 90.5 % (95.0-98.0); OXYHEMOGLOBIN 87.7 %; PCO2 ARTERIAL 61.0 mmHg (35.0-42.0); PO2 ARTERIAL 68.4 mmHg (75.0-100.0); TOTAL HEMOGLOBIN 13.5 g/dL (13.5-18.0)
[2024-10-30] MEDS: propofoL 1,000 MG/100 ML 100 ML IV SCH (07:00)
[2024-10-30 07:16] LABS: BASE EXCESS ARTERIAL -1.7 mm/L; BICARBONATE,ARTERIAL 27.5 mmol/L (22.0-26.0); O2 SATURATION ARTERIAL 95.5 % (95.0-98.0); OXYHEMOGLOBIN 92.3 %; PO2 ARTERIAL 93.7 mmHg (75.0-100.0); TOTAL HEMOGLOBIN 13.4 g/dL (13.5-18.0)
[2024-10-30 07:19] LABS: PCO2 ARTERIAL 71.0 mmHg (35.0-42.0)
[2024-10-30] MEDS ORDERED: Propofol 200 MG/20 ML SDV ONE (07:23)
[2024-10-30] MEDS ORDERED: Succinylcholine 200 MG/10 ML MDV ONE (07:23)
[2024-10-30] MEDS: Heparin Sodium 5,000 UNITS in Sodium Chloride 0.9% 500 ML IV SCH (07:30)
[2024-10-30 07:33] LABS: BASOPHILS ABSOLUTE AUTO 0.09 K/uL (0.00-0.10); BASOPHILS PERCENT AUTO 0.6 % (0.1-1.3); EOSINOPHILS ABSOLUTE AUTO 0.01 K/uL (0.00-0.40); EOSINOPHILS PERCENT AUTO 0.1 % (0.0-5.4); IMMATURE GRAN ABSOLUTE AUTO 0.18 K/uL (0.00-0.23); IMMATURE GRAN PERCENT AUTO 1.1 % (0.0-0.7); LYMPHOCYTES ABSOLUTE AUTO 0.82 K/uL (0.8-3.3); LYMPHOCYTES PERCENT AUTO 5.0 % (11.4-47.7); MONOCYTES ABSOLUTE AUTO 1.22 K/uL (0.20-0.90); MONOCYTES PERCENT AUTO 7.5 % (3.3-12.6); NEUTROPHILS ABSOLUTE AUTO 14.01 K/uL (1.0-7.6); NEUTROPHILS PERCENT AUTO 85.7 % (40.0-78.1); PLATELET COUNT,PLT 303 K/uL (130-375); RED BLOOD CELL COUNT 4.18 M/uL (4.14-5.76); WHITE BLOOD CELL COUNT,WBC 16.3 K/uL (3.2-11.0)
[2024-10-30 07:43] LABS: A/G RATIO 0.6 (1.2-2.2); ALANINE AMINOTRANSFERASE,ALT 17 U/L (12-78); ASPARTATE AMNIOTRANSFERASE,AST 25 U/L (15-37); BILIRUBIN TOTAL 1.1 mg/dL (0.2-1.0); BLOOD UREA NITROGEN,BUN 17 mg/dL (7-18); CARBON DIOXIDE,CO2 30 mmol/L (21-32); CHLORIDE,CL 98 mmol/L (100-108); CREATININE 1.0 mg/dL (0.8-1.3); EST CRCL DRUG DOSING (CG) 79.92 mL/min; ESTIMATED GFR 81 mL/min (>60); GLUCOSE RANDOM 188 mg/dL (74-106); POTASSIUM,K 4.7 mmol/L (3.6-5.2); PROTEIN TOTAL,TP 8.1 g/dL (6.4-8.2); SODIUM,NA 134 mmol/L (140-148)
[2024-10-30] MEDS: propofoL 1,000 MG/100 ML 100 ML ONE (08:18)
[2024-10-30] MEDS: Piperacillin/Tazobactam/Dext 4.5 GM in Premix Bag 1 BAG IV SCH (08:20)
[2024-10-30 08:33] LABS: BASE EXCESS ARTERIAL -1.0 mm/L; BICARBONATE,ARTERIAL 25.0 mmol/L (22.0-26.0); O2 SATURATION ARTERIAL 99.3 % (95.0-98.0); OXYHEMOGLOBIN 96.2 %; PCO2 ARTERIAL 50.1 mmHg (35.0-42.0); PO2 ARTERIAL 177.0 mmHg (75.0-100.0); TOTAL HEMOGLOBIN 12.0 g/dL (13.5-18.0)
[2024-10-30] MEDS: Heparin Sodium 5,000 Units/ML Vial ONE (09:11)
[2024-10-30] MEDS: Lactobacillus Rhamnosus GG (Probiotic) Cap PO SCH (09:12)
[2024-10-30] MEDS: methylPREDNISolone Sodium Succinate 125 MG/2 ML SDV IVPUSH SCH (10:12)
== END 2024-10-30 11:25 | DRG 196 ==
LOC: JP.ED 22:41 → JP.ICU 10-27 02:04
PROVIDERS: ADMIT Hospitalist; ATTEND Nurse Practitioner
DX: J84.9 Interstitial pulmonary disease, unspecified (principal); J18.9 Pneumonia, unspecified organism; J96.21 Acute and chronic respiratory failure with hypoxia; J96.22 Acute and chronic respiratory failure with hypercapnia; J44.0 Chronic obstructive pulmonary disease with (acute) lower respiratory infection; J44.1 Chronic obstructive pulmonary disease with (acute) exacerbation; Z88.5 Allergy status to narcotic agent; H54.7 Unspecified visual loss; Z79.51 Long term (current) use of inhaled steroids; I25.10 Atherosclerotic heart disease of native coronary artery without angina pectoris; E78.00 Pure hypercholesterolemia, unspecified; G47.30 Sleep apnea, unspecified; K21.9 Gastro-esophageal reflux disease without esophagitis; M54.42 Lumbago with sciatica, left side; E11.65 Type 2 diabetes mellitus with hyperglycemia; G89.29 Other chronic pain; M54.9 Dorsalgia, unspecified; E86.0 Dehydration; R51.9 Headache, unspecified; F41.9 Anxiety disorder, unspecified; F32.A Depression, unspecified; E11.9 Type 2 diabetes mellitus without complications; Z86.16 Personal history of COVID-19; Z98.890 Other specified postprocedural states; Z96.619 Presence of unspecified artificial shoulder joint; Z87.891 Personal history of nicotine dependence; Z79.01 Long term (current) use of anticoagulants; Z79.4 Long term (current) use of insulin; Z79.899 Other long term (current) drug therapy; Z86.718 Personal history of other venous thrombosis and embolism; Z88.8 Allergy status to other drugs, medicaments and biological substances; Z99.81 Dependence on supplemental oxygen
CPT/HCPCS: 36415 ×2; 71045 ×2; 71275; 80048 ×2; 82803; 83605; 83880; 84484 ×2; 85025 ×2; 85379; 85610; 86140; 87040 ×2; 93005 ×2; 93010 ×2; 94640; 96365; 96366; 96367; 96372; 99285 ×3; A9270 ×4; J0456; J0696; J2919; J7030; J7040; Q9967; 36600; 51702; 74018; 74018-26; 80053; 80202; 82947; 83735; 85027; 94002; 97110-GP; 97162-GP; 99222; 99232; J0330; J0574-GY; J1644; J1815-GY; J1938; J2060; J2270; J2470; J2543; J2704; J3370; J3430; J7050; J7512; J7605; U0002